=== PATIENT | female | born 1965 | race Caucasian/White ===

== ENCOUNTER 2017-12-22 20:08 | Emergency (ER) | payer OTHER ==
[~2017-12-22] VITALS: Ht 160 cm; Wt 58.4 kg
[~2017-12-22 20:08] MED LIST: ALBU1AER9 INH; LORA10TA6 PO; MULT-506 PO; RANI150T2 PO; RANI150T85 PO; SNG10 PO
[2017-12-22 20:11] VITALS: TEMP 36.5; Ht 160 cm; Wt 58.4 kg
[2017-12-22] MEDS ORDERED: PROCHLORPERAZINE 5 MG/ML 2 ML VIAL IV STA (20:20)
[2017-12-22] MEDS ORDERED: SODIUM CHLORIDE 0.9% 1000ML 1,000 ML IV STA (20:20)
[2017-12-22] MEDS ORDERED: KETOROLAC TROMETHAMINE 30 MG/ML VIAL IV STA (20:20)
[2017-12-22 21:18] VITALS: BP 167/95; PULSE 79; O2SAT 100
--- NOTE | 2017-12-23 00:58 | EMERGENCY ROOM VISIT NOTE ---
History Report prepared by Rossy: Lauren Hayden Under the Supervision of: Dr. Trent Camara M.D. First contact with patient: 20:15 Chief Complaint: HEADACHE Stated Complaint: MIGRAINE AND NAUSEA History of Present Illness The patient is a 52 year old female who presents to the Emergency Room with complaints of a constant migraine headache that started yesterday. She stated that she feels the pain on the right side of her head and neck. The patient complains of nausea and light makes it worse. The patient noted that Excedrin usually helps with her migraines, but it did not improve her pain this time. She denies any fever, vomiting, and recent fall or trauma. She states that she has no other medical problems. Source of History: patient Onset: Yesterday Position: head Quality: other (migraine) Timing: constant Modifying Factors (Worsening): other (light) Associated Symptoms: + neck pain, + nausea, No fevers, No vomiting Note: The patient denies any recent fall or trauma. Review of Systems See HPI for pertinent positives & negatives. A total of 10 systems reviewed and were otherwise negative. Past Medical & Surgical Medical Problems: (1) bulging disc in neck Surgical Problems: (1) History of hysterectomy Family History Patient reports no known family medical history. Social History Smoking Status: Current Every Day Smoker Alcohol Use: none Drug Use: none Marital Status: Housing Status: lives with family Occupation Status: employed Current/Historical Medications Scheduled Loratadine (Claritin), 10 MG PO DAILY Montelukast Sod (Montelukast Sodium), 10 MG PO DAILY Multivitamin (Multivitamin), 1 TAB PO DAILY Ranitidine (Zantac), 300 MG PO HS Ranitidine HCl (Ranitidine HCl), 150 MG PO QAM Scheduled PRN Albuterol Sulfate (Proair Hfa), 2 PUFFS INH Q4H PRN for Rescue/Asthma Symptoms Allergies Coded Allergies: Diphenhydramine (Verified Adverse Reaction, Unknown, HEART RACES, 01/19/16) Physical Exam Vital Signs Date Time Temp Pulse Resp B/P (MAP) Pulse Ox O2 Delivery O2 Flow Rate FiO2 12/22/17 21:18 79 16 167/95 100 12/22/17 20:11 36.5 70 18 165/90 100 Room Air Physical Exam Constitutional: Vital signs reviewed. Eyes: Pupils are equal round reactive to light. Conjunctiva are noninjected. ENT: Pharynx is clear without erythema or exudate. Mucous membranes are moist. Neck supple without meningeal signs. Respiratory: Clear to auscultation bilaterally. Breath sounds are equal bilaterally. Cardiovascular: Regular rate and rhythm. No rubs or gallops. GI: Soft, nondistended and nontender. Bowel sounds are present. Musculoskeletal: No peripheral edema. No lower extremity tenderness. Integumentary: No cyanosis. Neurological: The patient is awake and alert. Cranial nerves II-XII are intact. Motor is 5 out of 5 all extremities. Sensation is intact to light touch all extremities. Normal speech. No pronator drift. Psychiatric: Normal affect. Medical Decision & Procedures Medications Administered Medications (Trade) Dose Ordered Sig/Savita Route Start Time Stop Time Status Last Admin Dose Admin Prochlorperazine Edisylate (Compazine Inj) 10 mg NOW STAT IV 12/22/17 20:20 12/22/17 20:22 DC 12/22/17 20:32 10 MG Sodium Chloride 1,000 ml @ 999 mls/hr Q1H1M STAT IV 12/22/17 20:20 12/22/17 21:20 DC 12/22/17 20:31 999 MLS/HR Ketorolac Tromethamine (Toradol Inj) 10 mg NOW STAT IV 12/22/17 20:20 12/22/17 20:22 DC 12/22/17 20:32 10 MG ED Course 2014: The patient was evaluated in room B6. A complete history and physical exam was performed. 2019: Ordered Toradol Inj 10 mg IV, NSS 1000 ml @ 999 mls/hr IV, Compazine Inj 10 mg IV. 2053: Upon reevaluation, the patient appeared to have improvement of her symptoms. I discussed tonight's findings with her. She verbalized agreement of the treatment plan. The patient was discharged home. Medical Decision This is a 52-year-old female who presents with a migraine headache. I did perform a limited focused review of portions of the patient's old chart on the electronic medical record. The patient has had no recent pertinent visits to this hospital. The patient is presenting with a migraine headache. She has a history of migraine headaches and her headache today is typical of her prior migraines. She is neurologically intact. She has no fever. I have no reason to suspect an acute intracranial hemorrhage or meningitis. IV access was established. I did treat the patient with IV Compazine, Toradol and normal saline. I did reassess the patient. She did state that she felt better and wanted to go home. She was advised to follow-up with her doctor and was discharged in good condition. Medication Reconcilliation Current Medication List: was personally reviewed by me Blood Pressure Screening Patient's blood pressure: Elevated blood pressure Blood pressure disposition: Referred to PCP Impression Primary Impression: Acute headache Scribe Attestation The scribe's documentation has been prepared under my direct and personally reviewed by me in its entirety. I confirm that the note above accurately reflects all work, treatment, procedures, and medical decision making performed by me. Departure Information Dispostion Home / Self-Care Referrals Jonas De La Fuente D.O. (PCP) Forms HOME CARE DOCUMENTATION FORM, IMPORTANT VISIT INFORMATION Patient Instructions My [facility] Additional Instructions You have been examined and treated today on an emergency basis only. This is not a substitute for, or an effort to provide, complete comprehensive medical care. It is impossible to recognize and treat all injuries or illnesses in a single emergency department visit. It is therefore important that you follow up closely with your physician. Call as soon as possible for an appointment. Return for worsening symptoms or if you develop fever, numbness or weakness on one side of your body, difficulties with your speech or walking, or any other concerning symptoms. Problem Qualifiers Primary Impression: Acute headache Headache type: unspecified Intractability: not intractable Qualified Codes : R51 - Headache
== END 2017-12-22 21:19 | disposition home or self-care (01) ==
LOC: C.EDB 20:09
DX: R51 Headache (principal); F17.200 Nicotine dependence, unspecified, uncomplicated; Z88.6 Allergy status to analgesic agent

== ENCOUNTER 2018-11-02 05:58 | Observation (INO) ==
--- NOTE | 2018-10-28 09:29 | Anesthesiology Consultation ---
Date of Service October 28, 2018 Assessment & Plan (1) Encounter for pre-operative examination: Abnormal pre-op EKG done 10/27/18. Anterior infarct now present. Spoke to patient via phone regarding her functional status. She states she is very active at home and would have no SOB or CP with a flight of stairs. Case discussed with Dr. Adams. Given unremarkable PMH, age and BMI, patient OK to proceed without further cardiac workup. Surgeon ordered pre-op CXR. Radiology recommending f/u chest CT. Per surgeon, can proceed with surgery without chest CT. Chart Review Chart Review: Acceptable Risk for Surgery and Patient NOT seen in Pre Admission Testing History Surgery Operation Date: 11/02/18 07:30 Proposed Procedures p C5-C6 Removal Cervical Plate; C6-C7, C7-T11 Anterior Cervical Discectomy Fusion with Iliac Crest Bone Graft - Emmanuel Lujan, Height/Weight Height: 5 ft 3 in Weight: 58.967 kg Allergies Allergy/AdvReac Type Severity Reaction Status Date / Time diphenhydramine AdvReac Intermediate HEART RACES Verified 10/13/18 10:56 Medications Home Medications Medication Instructions Recorded Confirmed Last Taken albuterol sulfate 1 inh INHALATION QID PRN 10/13/18 10/13/18 Unknown gabapentin 300 mg PO TID 10/13/18 10/13/18 Unknown loratadine [Claritin] 10 mg PO QPM 10/13/18 10/13/18 Unknown montelukast [Singulair] 10 mg PO PM 10/13/18 10/13/18 Unknown multivitamin 1 tab PO DAILY 10/13/18 10/13/18 Unknown ranitidine HCl [Zantac] 150 mg PO UD 10/13/18 10/13/18 Unknown Past Medical History Medical History Asthma HAS NOT USED INHALER FOR A LONG TIME Degenerative disc disease Environmental and seasonal allergies GERD (gastroesophageal reflux disease) Migraine Osteoarthritis Past Family History Family History Father Family history of diabetes mellitus Past Surgical History Surgical History Fusion of spine CERVICAL History of adenoidectomy History of arthroscopy LEFT KNEE History of colonoscopy History of endoscopic sinus surgery History of hysterectomy History of tonsillectomy History of tooth extraction Past Anesthesia History 2013 HUA = MAC 3, ETT 7.0, grade view I. STOP BANG Total 1 Social History Smoking Status: Current every day smoker tobacco type: cigarettes Smoking cigarettes per day: 3 CIG DAILY Do You Dip or Chew Tobacco: No Hx Alcohol Use: No Hx Substance Use: No substance use type: does not use Testing Laboratory Results 10/27/18 WBC: 13.91 H/H: 13.3/39.7 PLATELETS: 264 SODIUM: 141 POTASSIUM: 4.2 CHLORIDE: 109 CO2: 26 BUN: 12 CREATININE: 0.77 GLUCOSE: 90 PT: 9.8 INR: 1.0 Electrocardiogram Date: 10/27/18 Findings: + NSR @ (70) Minimal voltage criteria for LVH, maybe normal variant. Anteroseptal infarct, age undetermined. Compared with EKG of 06/03/13, anteroseptal infarct is now present. Chest X-Ray Date: 10/27/18 FINDINGS: Focal density within the right posterior lung base only seen on the lateral view. Otherwise, the lungs are clear. The heart is normal in size. No pleural effusions. No pneumothorax. Cervical spinal fusion hardware is noted. IMPRESSION: Focal density within the right posterior lung base which may be related to the hemidiaphragm. However, chest CT recommended for confirmation. This finding was called/faxed to the referring physician's office following dictation. Echocardiogram Date: 09/30/13 EF: 53% Left ventricular systolic function is normal. Left ventricular diastolic function is normal. Trace tricuspid regurgitation. No evidence of pulmonary hypertension.
--- NOTE | 2018-10-30 14:56 | History and Physical Report ---
DATE OF ADMISSION: 11/02/2018 CHIEF COMPLAINT: Neck and arm pain 2 months in duration, worsening over time, refractory to Neurontin and tramadol, miserable, trouble moving her head, riveting arm pain, associated weakness, severe nighttime pain. HISTORY OF PRESENT ILLNESS: She has cervical radiculopathy with discogenic complexes at C6-C7 and C7-T1 cervical spine. She is here for semi-urgent surgery. PAST MEDICAL HISTORY: Positive for mitral valve prolapse, stomach ulcers, asthma, childhood diseases. PAST SURGICAL HISTORY: Knee, back, neck, hysterectomy. ALLERGIES: BENADRYL. SOCIAL HISTORY: . No alcohol. Mild tobacco active. REVIEW OF SYSTEMS: Twelve-system reviewed, negative for fevers, sweats, chills, weight loss or gain. Denies chest pain, palpitations, occasional ectopy. Positive for asthma. No nausea, vomiting. No urgency, frequency. She has numbness, tingling and joint pain primarily. MEDICATIONS: Zantac, Singulair, Claritin, multivitamin. OBJECTIVE: GENERAL: She is alert, oriented. VITAL SIGNS: Blood pressure 130/80, pulse 80, respiration 16. CARDIAC: Normal S1, S2, no S3. LUNGS: Clear to auscultation. No rales, rhonchi, wheezing. NEUROLOGICAL: She has a Spurling maneuver. She has Lhermitte sign. She has weakness. She has weakness of manager configuration and triceps function. Biceps is functional. No deltoid weakness, slight muscle atrophy. IMPRESSION: Cervical radiculopathy. PLAN: Includes the ACDF, cervical spine C6-C7, removal of anterior plate at C5-C6 with iliac crest bone.
[2018-11-02] MEDS ORDERED: SODIUM CHLORIDE 0.9% 1000ML IV SCH (06:00)
[2018-11-02] MEDS ORDERED: LR 15ML/HR IV SCH (06:00)
[2018-11-02] MEDS ORDERED: CEFAZOLIN 2000MG 2,000 MG/15 ML SYR IV SCH (06:00)
[2018-11-02] MEDS ORDERED: MIDAZOLAM HCL 1 MG/ML 2ML VIAL ONE (06:42)
[2018-11-02] MEDS ORDERED: fentaNYL citrate 100 MCG/2 ML VIAL ONE (06:42)
[2018-11-02] MEDS ORDERED: LIDOCAINE HCL 2% 2 ML VIAL/AMP(20MG/ML) INFIL ONE (06:47)
[2018-11-02] MEDS ORDERED: ROCURONIUM BROMIDE 10 MG/ML 5 ML VIAL ONE (06:47)
[2018-11-02] MEDS ORDERED: PROPOFOL IV EMULSION 10 MG/ML 20 ML VIAL IV ONE (06:47)
[2018-11-02] MEDS ORDERED: DEXAMETHASONE SOD INJ 4 MG/ML VIAL ONE (06:47)
[2018-11-02] MEDS ORDERED: ONDANSETRON INJ 2 MG/ML 2 ML VIAL ONE (06:47)
[2018-11-02] MEDS ORDERED: ePHEDrine sulfate 50 MG/ML AMP IV PRN (07:03)
[2018-11-02] MEDS ORDERED: PROMETHAZINE HCL 12.5 MG in SODIUM CHLORIDE 0.9% 50 ML IV PRN (07:03)
[2018-11-02] MEDS ORDERED: ATROPINE SULFATE 0.1 MG/ML 10ML SYR IV PRN (07:03)
[2018-11-02] MEDS ORDERED: ONDANSETRON INJ 2 MG/ML 2 ML VIAL IV PRN ×2 (07:03→11:41)
[2018-11-02] MEDS ORDERED: PHENYLEPHRINE 100MCG/ML 5ML SYR IV PRN (07:03)
[2018-11-02] MEDS ORDERED: BACITRACIN INJ 50,000 UNIT VIAL ONE (07:05)
[2018-11-02] MEDS ORDERED: THROMBIN FOR SOLN 20000 UNIT KIT ONE (07:06)
[2018-11-02] MEDS ORDERED: GELATIN SPONGE SZ 100 ONE (07:06)
[2018-11-02] MEDS ORDERED: BUPIVACAINE/EPINEPHRINE 0.5% MPF 1:200,000 30 ML VIAL ONE ×2 (07:06→07:23)
--- NOTE | 2018-11-02 07:29 | History & Physical Bridge Note ---
Date of Service November 02, 2018 History & Physical Bridge Note I have examined the patient, reviewed the History & Physical and in the interval since the performance of the History & Physical I have noted the following changes of clinical significance: Fusion C6-T1, removal of plate c5-6, iliac crest bone graft
[2018-11-02] MEDS ORDERED: HYDROmorphone INJ 2 MG/ML SYR/VIAL ONE (07:55)
[2018-11-02] MEDS ORDERED: GLYCOPYRROLATE 0.2 MG/ML VIAL ONE (09:08)
[2018-11-02] MEDS ORDERED: NEOSTIGMINE METHYLSULFATE 5 MG/5 ML SYR ONE (09:08)
[2018-11-02] MEDS ORDERED: ePHEDrine sulfate 50 MG/ML AMP ONE (09:17)
--- NOTE | 2018-11-02 09:48 | Post Operative Brief Note ---
Immediate Post Op Note v1 Date of Surgery November 02, 2018 Pre & Post Diagnosis Operation Date: 11/02/18 07:30 Pre-Op Diagnosis: Cervical Stenosis, Disc Herniation Post-Op Diagnosis: Cervical Stenosis, Disc Herniation Procedure Operation Date: 11/02/18 07:30 Actual Procedures p C6-C7, C7-T1 Anterior Cervical Discectomy and Fusion with Iliac Crest Bone Graft, Insertion of Coalition device at C6-C7, C7-T1(Not Applicable) - Emmanuel Lujan DO Surgeon Emmanuel Lujan DO Production Sanitizer kiki Estimated Blood Loss 15 Findings Consistent with Post-Op Diagnosis Drains Juan Drain Complications none Disposition Accompanied Patient To Recovery: Yes Overlapping Procedure I was immediately available: during the entire case.
--- NOTE | 2018-11-02 10:00 | Fluoroscopy Report ---
FL spine 1V any level CLINICAL HISTORY: 53 years-old Female presenting with C5-C6 REMOVAL OF PLATE C6-C7 C7-T11 ACDF. TECHNIQUE: 1 fluoroscopic image(s) recorded as part of an intraoperative procedure. COMPARISON: 10/09/2018. FINDINGS/IMPRESSION: Anterior cervical discectomy and fusion of C5-6 again noted. There has been interval anterior cervica l discectomy and fusion of C6-7. Alignment is unchanged from prior. Please see surgical report for further details. Fluoroscopy dosage (mGy): 6.86. Fluoroscopy time: 7.8 seconds. Number or time of high level fluoroscopy (HLF), digital spot, or digital subtraction images: 5.6 seco nds. Electronically signed by: Amado Trimble M.D. 11/02/2018 9:59 AM
[2018-11-02] MEDS: fentaNYL citrate 100 MCG/2 ML VIAL IV PRN ×4 (10:19→10:34)
[2018-11-02] MEDS: HYDROmorphone INJ 1 MG/ML SYRINGE IV PRN ×2 (10:39→10:47)
[2018-11-02] MEDS ORDERED: LORazepam 0.5 MG/1 ML VIAL IV PRN (11:41)
[2018-11-02] MEDS ORDERED: HYDROmorphone INJ 0.5 MG/0.5 ML SYR IV PRN (11:41)
[2018-11-02] MEDS ORDERED: MAGNESIUM HYDROXIDE SUSP 30 ML UDC PO PRN (11:41)
[2018-11-02] MEDS ORDERED: RACEPINEPHRINE 2.25% NEBU SOLN 0.5 ML VIAL INH PRN (11:41)
[2018-11-02] MEDS ORDERED: NALOXONE HCL 0.4 MG/1 ML VIAL/CARP IV PRN (11:41)
[2018-11-02] MEDS ORDERED: DEXAMETHASONE SOD PHOSPHATE 8 MG in SYRINGE 0 ML IV PRN (11:46)
[2018-11-02] MEDS ORDERED: ACETAMINOPHEN 1,000 MG/100 ML VIAL IV PRN (12:00)
[2018-11-02] MEDS ORDERED: ALBUTEROL HFA 8 GM INHALER INH PRN (12:00)
--- NOTE | 2018-11-02 12:03 | Anesthesiology Progress Note ---
Date of Service November 02, 2018 Anesthesia Post Procedure Vital Signs Vital Signs: Temp Pulse Pulse Pulse Pulse Resp BP 11/02/18 11:56 80 14 11/02/18 11:53 90 14 11/02/18 11:25 36.7 C 85 15 11/02/18 11:17 37.0 C 11/02/18 11:15 104 H 20 11/02/18 11:10 96 H 14 159/78 H 11/02/18 11:05 96 H 13 136/80 11/02/18 11:02 84 14 11/02/18 11:01 98 H 14 161/89 H 11/02/18 11:00 90 16 11/02/18 10:55 96 H 19 158/87 H 11/02/18 10:50 84 11 L 153/75 H 11/02/18 10:45 103 H 23 158/65 H 11/02/18 10:40 102 H 20 158/70 H 11/02/18 10:35 85 14 147/83 H 11/02/18 10:31 97 H 18 163/77 H 11/02/18 10:30 104 H 18 11/02/18 10:25 101 H 13 158/78 H 11/02/18 10:21 99 H 14 147/81 H 11/02/18 10:20 98 H 15 11/02/18 10:15 93 H 14 126/88 11/02/18 10:10 102 H 16 162/81 H 11/02/18 10:05 96 H 15 152/85 H 11/02/18 10:00 99 H 17 150/85 H 11/02/18 09:55 97 H 18 125/68 11/02/18 09:50 80 14 120/63 11/02/18 09:47 82 14 11/02/18 09:45 83 15 110/56 L 11/02/18 09:44 36.1 C L 78 83 13 100/54 L 11/02/18 06:20 37.0 C 67 20 BP Pulse Ox 11/02/18 11:56 144/76 H 97 11/02/18 11:53 96 11/02/18 11:25 146/80 H 96 11/02/18 11:17 97 11/02/18 11:15 96 11/02/18 11:10 98 11/02/18 11:05 97 11/02/18 11:02 96 11/02/18 11:01 97 11/02/18 11:00 97 11/02/18 10:55 96 11/02/18 10:50 94 11/02/18 10:45 94 11/02/18 10:40 98 11/02/18 10:35 96 11/02/18 10:31 93 11/02/18 10:30 94 11/02/18 10:25 99 11/02/18 10:21 99 11/02/18 10:20 100 11/02/18 10:15 99 11/02/18 10:10 98 11/02/18 10:05 99 11/02/18 10:00 99 11/02/18 09:55 95 11/02/18 09:50 95 11/02/18 09:47 92 11/02/18 09:45 92 11/02/18 09:44 110/56 L 90 11/02/18 06:20 148/88 H 99 Pain Intensity Left Neck: Pain Intensity: 9 Anterior Neck: Pain Intensity: 4 Left Lower Arm: Pain Intensity: 8 Neck: Pain Intensity: 4 Transfer of Care Handoff Completed per policy Notes Mental Status: alert / awake / arousable Patient Amnestic to Procedure: Yes Nausea / Vomiting: adequately controlled Pain: adequately controlled Airway Patency, RR, SpO2: stable & adequate BP & HR: stable & adequate Hydration State: stable & adequate Anesthetic Complications: no major complications apparent
[2018-11-02] MEDS: SODIUM CHLORIDE 0.9% 1000ML 1,000 ML IV SCH (12:07)
--- NOTE | 2018-11-02 13:18 | Operative Report ---
DATE OF OPERATION: 11/02/2018 PREOPERATIVE DIAGNOSIS: Cord compression C6-C7 and C7-T1, cervical thoracic spine. POSTOPERATIVE DIAGNOSIS: Cord compression C6-C7 and C7-T1, cervical thoracic spine. PROCEDURES: 1. Anterior cervical discectomy and fusion, C6-C7, C7-T1, iliac crest structural autograft. 2. Coalition insertion at C6-C7 and C7-T1. SURGEON: Emmanuel Lujan DO PATTERNMAKER PRESSURE CAST: Jonas Sy PA-C COMPLICATIONS: No complications. ESTIMATED BLOOD LOSS: 15 mL. DESCRIPTION OF PROCEDURE: The patient was taken to the operating room, a general intubated anesthetic provided to the patient. We kept her supine, placed her on some longitudinal traction, scrubbed, prepped and draped sterile. I made a skin incision, fascial incision. I came down on the anterior aspect of the spinal cord, used a classic approach. I was able to find the anterior plate at C5-C6 fairly easily. We did make several attempts to try to take out the plate. I made the decision, it was not required, the fusion was solid, was not in the way and we had an alternative plan B with the coalition device. We did formal discectomies at C6-C7 and C7-T1, taking out disc material osteophyte. We were back into the spinal cord in each level. Disc material was removed. I was pleased with the decompression. Next, I went to the left iliac crest, made a skin incision, fascial incision, was able to harvest a structural autograft for the vacated discectomy sites in the cervical spine. This autograft structural was placed into the coalition device by the [employer]. They were 6 mm in height, 15 mm in depth and approximately 15 mm in width. These were placed in the interval, secured in place, bone grafted. We irrigated and closed both areas in step by step fashion, Juan over the cervical spine. Sterile dressings applied. The patient returned to PACU stable. No apparent complications. I attest to the content of the Intraoperative Record and any orders documented therein. Any exception s are noted below.
[2018-11-02] MEDS: GABAPENTIN 300 MG CAP PO SCH ×2 (13:56→20:40)
[2018-11-02] MEDS: CEFAZOLIN 2000MG 2,000 MG/15 ML SYR IV SCH (16:12)
[2018-11-02] MEDS: OXYCODONE HCL IR 5 MG TAB (IMMEDIATE RELEASE) PO PRN ×2 (16:26→20:43)
[2018-11-02] MEDS: DOCUSATE SODIUM 100 MG CAP PO SCH (20:40)
[2018-11-02] MEDS ORDERED: MONTELUKAST SODIUM 10 MG TABLET PO SCH (21:00)
[2018-11-03] MEDS: CEFAZOLIN 2000MG 2,000 MG/15 ML SYR IV SCH ×2 (00:04→07:46)
[2018-11-03] MEDS: SODIUM CHLORIDE 0.9% 1000ML 1,000 ML IV SCH (00:05)
[2018-11-03] MEDS: OXYCODONE HCL IR 5 MG TAB (IMMEDIATE RELEASE) PO PRN ×2 (05:14→10:33)
--- NOTE | 2018-11-03 07:45 | Anesthesiology Progress Note ---
Date of Service November 03, 2018 Anesthesia Post Procedure Vital Signs Vital Signs: Temp Pulse Pulse Pulse Resp BP BP 11/03/18 07:04 61 14 11/03/18 06:57 36.8 C 68 16 145/80 H 11/03/18 05:11 36.7 C 77 16 150/73 H 11/03/18 03:19 72 16 11/03/18 03:10 36.7 C 72 16 142/83 H 11/03/18 01:00 36.8 C 77 14 144/83 H 11/02/18 23:10 66 14 11/02/18 22:25 36.6 C 76 17 143/80 H 11/02/18 20:35 36.6 C 85 16 137/80 11/02/18 19:07 88 14 11/02/18 18:30 93 H 15 145/86 H 11/02/18 16:13 36.6 C 88 14 150/80 H 11/02/18 15:27 71 16 11/02/18 14:30 98 H 16 163/93 H 11/02/18 13:54 76 16 119/73 11/02/18 13:24 36.8 C 16 147/80 H 11/02/18 12:22 83 15 142/82 H 11/02/18 11:56 80 14 144/76 H 11/02/18 11:53 90 14 11/02/18 11:25 36.7 C 85 15 146/80 H 11/02/18 11:17 37.0 C 11/02/18 11:15 104 H 20 11/02/18 11:10 96 H 14 159/78 H 11/02/18 11:05 96 H 13 136/80 11/02/18 11:02 84 14 11/02/18 11:01 98 H 14 161/89 H 11/02/18 11:00 90 16 11/02/18 10:55 96 H 19 158/87 H 11/02/18 10:50 84 11 L 153/75 H 11/02/18 10:45 103 H 23 158/65 H 11/02/18 10:40 102 H 20 158/70 H 11/02/18 10:35 85 14 147/83 H 11/02/18 10:31 97 H 18 163/77 H 11/02/18 10:30 104 H 18 11/02/18 10:25 101 H 13 158/78 H 11/02/18 10:21 99 H 14 147/81 H 11/02/18 10:20 98 H 15 11/02/18 10:15 93 H 14 126/88 11/02/18 10:10 102 H 16 162/81 H 11/02/18 10:05 96 H 15 152/85 H 11/02/18 10:00 99 H 17 150/85 H 11/02/18 09:55 97 H 18 125/68 11/02/18 09:50 80 14 120/63 11/02/18 09:47 82 14 11/02/18 09:45 83 15 110/56 L 11/02/18 09:44 36.1 C L 78 83 13 100/54 L 110/56 L Pulse Ox 11/03/18 07:04 98 11/03/18 06:57 98 11/03/18 05:11 97 11/03/18 03:19 97 11/03/18 03:10 98 11/03/18 01:00 97 11/02/18 23:10 97 11/02/18 22:25 96 11/02/18 20:35 98 11/02/18 19:07 97 11/02/18 18:30 97 11/02/18 16:13 93 11/02/18 15:27 96 11/02/18 14:30 97 11/02/18 13:54 100 11/02/18 13:24 95 11/02/18 12:22 95 11/02/18 11:56 97 11/02/18 11:53 96 11/02/18 11:25 96 11/02/18 11:17 97 11/02/18 11:15 96 11/02/18 11:10 98 11/02/18 11:05 97 11/02/18 11:02 96 11/02/18 11:01 97 11/02/18 11:00 97 11/02/18 10:55 96 11/02/18 10:50 94 11/02/18 10:45 94 11/02/18 10:40 98 11/02/18 10:35 96 11/02/18 10:31 93 11/02/18 10:30 94 11/02/18 10:25 99 11/02/18 10:21 99 11/02/18 10:20 100 11/02/18 10:15 99 11/02/18 10:10 98 11/02/18 10:05 99 11/02/18 10:00 99 11/02/18 09:55 95 11/02/18 09:50 95 11/02/18 09:47 92 11/02/18 09:45 92 11/02/18 09:44 90 Pain Intensity Left Neck: Pain Intensity: 9 Anterior Neck: Pain Intensity: 4 Left Lower Arm: Pain Intensity: 8 Neck: Pain Intensity: 4 Notes Mental Status: alert / awake / arousable and participated in evaluation Patient Amnestic to Procedure: Yes Nausea / Vomiting: adequately controlled Pain: adequately controlled Airway Patency, RR, SpO2: stable & adequate BP & HR: stable & adequate Hydration State: stable & adequate Anesthetic Complications: no major complications apparent and Pt Satisfied with anesthetic care
[2018-11-03] MEDS: GABAPENTIN 300 MG CAP PO SCH (07:47)
[2018-11-03] MEDS: DOCUSATE SODIUM 100 MG CAP PO SCH (07:47)
--- NOTE | 2018-11-03 19:27 | Discharge Summary ---
Erendira was seen on rounds this morning. She had an uneventful evening, 20-hour stay in the hospital for anterior cervical disc arthrodesis. She has done well. Wound clean, dry. Neurologically intact and afebrile. No swallowing or shortness of breath difficulties. ASSESSMENT: Status post anterior cervical discectomy and fusion, 2 levels with iliac crest bone graft, nice short term recovery. PLAN: We will discharge her home. She has instructions, precautions given to her in the office and in the hospital. Medication for pain. Cervical collar and a followup appointment.
[2018-11-04] MEDS ORDERED: BISACODYL 5 MG TABEC PO PRN (09:50)
== END 2018-11-03 11:15 | disposition home or self-care (01) ==
LOC: ASU 05:58 → 3E 05:58

== ENCOUNTER 2024-05-06 16:04 | Inpatient (IN) ==
--- NOTE | 2024-05-06 16:10 | Emergency Department Note ---
Impression & Plan Nonischemic cardiomyopathy, Chest pain ED Provider Note NAME: BIRD FULTON AGE: 59 SEX: F : 1965 ARRIVES VIA: Walk-In INFORMANT: Patient, ED PROVIDER(S): Oscar Hadley MD CHIEF COMPLAINT: Chest pain, outpatient referral MEDICAL DECISION MAKING: Patient presents due to concern for chest pain. IV was established and blood work is obtained. Patient may have slight depressions in the lateral leads although not significantly prominent. Patient was ordered aspirin and nitro as the patient was complaining of left-sided chest pressure with radiation to the neck and arm. Patient also does have a history of cardiomyopathy. Patient was ordered the aspirin and nitro patient's blood work shows a normal white count H&H and platelet count. Chest x-ray without obvious pneumonia or pneumothorax. There is comment about soft tissue density at the left base. The patient had resolution of her pain after 3 nitro. Patient was mildly hypertensive when she presented normotensive. Given the patient's known history of cardiomyopathy with improvement in her chest pain I did speak the on-call hospitalist service. Initial EKG and troponin are fairly unremarkable the patient may have faint depressions in the lateral leads. I did speak with Shahana Vila PA-C and the patient was admitted by Dr. Durant. Discussion w/ other healthcare providers: Shahana Vila PA-C and Dr. Durant inpatient medicine service Prior /Outside records reviewed: I reviewed part of an echo report from September 2021 LVEF mildly reduced 45 to 49% with mild left ventricular cavity size enlargement. Concentric mild LV thickness. I did review part of a cardiac catheterization report from May 2021 patient was noted to have 30% stenosis of OM1 no other significant stenosis. Differential diagnosis: Cardiac ischemia, aortic dissection, pulmonary embolism, pneumothorax, pneumonia, pericarditis, myocarditis, GERD, cholecystitis, pancreatitis, musculoskeletal, as well as other pathologies were considered. Diagnostics, as interpreted by me: ECG: Normal sinus rhythm, rate of 69, normal intervals, normal axis no obvious STEMI, Q waves noted in V2 with T wave version. Possible slight depressions in the lateral leads no significant changes with the exception of possible new T wave version in V2. Cardiac monitoring: An order was placed for continuous cardiac monitoring. The monitor shows a rate of 75 with sinus rhythm. Patient was placed on pulse oximetry Medical decision rules: Heart score Imaging studies: I informally interpreted the patient's chest x-ray without obvious pneumonia with formal report to follow. HPI: Patient presents due to concern for chest pain. Reportedly the patient has had chest pain since yesterday morning. Initially thought this might be indigestion and did take some Pepto-Bismol and Tums and drink Sprite but the patient has had persistent pain. Patient states it has been fairly constant occasionally is relieved but has been present for hours in duration. No falls or trauma patient denies any cough or fever. Patient states that his left-sided and might have some radiation to the left neck and jaw area as well as left armpit. Patient states that she has not exerted herself greatly patient has not had any worsening symptoms with just walking. Patient states that she has had occasional bouts of shortness of breath but they come and go. No fevers or chills. Patient denies any alcohol or tobacco use. Patient reports that she does have a history of cardiomyopathy does follow with Dr. Kumar. Patient states that she did have a stress echocardiogram and cardiac catheterization completed about 2 or 3 years ago. Patient denies any history of DVT or PE. No leg swelling or calf pain. Patient denies any recent surgeries procedures or hospitalizations and no recent prolonged car plane travel. PAST MEDICAL HISTORY: See Below PAST SURGICAL HISTORY: See Below SOCIAL HISTORY: See Below HOME MEDICATIONS: See Below ALLERGIES: See Below VITALS: See Below PHYSICAL EXAMINATION: GENERAL: NAD, non-toxic. EYE EXAM: Normal conjunctiva. PERRL, no anisocoria and EOM's grossly intact w/o pain. OROPHARYNX: Moist mucus membranes, grossly normal dentition. NECK: Trachea midline, no stridor. Supple, no nuchal rigidity, no adenopathy, non-tender. No signs of meningismus. FROM of the neck with good chin to chest and neck extension. Chest: No reproducible left-sided chest pain. LUNGS: Clear to auscultation. Normal chest wall mechanics. HEART: NSR, no MRG. ABDOMEN: Abdomen soft, non-tender, no masses, no rebound or guarding. BACK: No CVA TTP. SKIN: No rashes and no bruising. UPPER EXTREMITIES: Upper extremities are grossly normal. LOWER EXTREMITIES: Grossly normal, no edema. Negative Homans' sign bilaterally NEURO EXAM: A&O x3, cranial nerves II-XII grossly intact, normal speech, moves all 4 extremities. Past Med/Surg History Problem List (Updated 05/08/24 @ 07:30 by Oscar Hadley MD) Chronic systolic CHF (congestive heart failure) Atypical chest pain Non-occlusive coronary artery disease Nonischemic cardiomyopathy (Acute) Chest pain (Acute) Endometrial polyp (Acute) Acute pelvic pain (Acute 07/19/13) Fibroids (Acute) Fibroids (Acute) Menorrhagia (Acute 10/01/13) Dysmenorrhea (Acute 10/01/13) Leiomyoma (Acute 10/01/13) Simple endometrial hyperplasia without atypia (Acute 10/01/13) Abdominal pain (Acute) Gastroenteritis (Acute) History of hysterectomy Acute headache (Acute) Encounter for pre-operative examination Arthritis Back problem Hemorrhoids (Acute) Heart disease per pt reason for jardiance--follows with Dr. Kumar High cholesterol Medical History Heart failure EF 45-49% on 09/2021 echo, mild dilated nonischemic cardiomyopathy CAD (coronary artery disease) 30% stenosis of OM1 History of anemia Degenerative disc disease GERD (gastroesophageal reflux disease) Migraine Asthma inhaler prn Surgical History H/O hemorrhoidectomy (09/26/22) Anorectal Exam under Anesthesia, Hemorrhoidectomy(Not Applicable) - Ricardo Biggs DO History of cardiac cath 06/21/21 @ [facility] no stents placed History of hysterectomy History of arthroscopy LEFT KNEE Fusion of spine x2--last Cervical Disectomy/fusion 11/02/18 C6-C7, C7-T1 @ [facility]--per pt some limitation moving neck backwards. Grade 1 view, glidescope 3, ETT 7. History of colonoscopy History of tooth extraction History of tonsillectomy History of adenoidectomy History of endoscopic sinus surgery Family History Father Diabetes Family history of diabetes mellitus Aunt Cancer Mother Hypertension Other No family history of adverse response to anesthesia Social History Smoking Status: Never smoker Second Hand Exposure: No; Do You Dip or Chew Tobacco: No; Hx Alcohol Use: No Hx Substance Use: No Preferred Language: Estonian Communication Ability: Effective Visual Impairment: No Limitations Administrative Nursing Supervisor Required: No Beliefs That Will Affect Care: None marital status: Current Living Situation: Spouse current occupational status: disabled How many Children do You have: 2 Other Information That Helps Us Care for You: No Feels Safe at Home: Yes Safety Concerns: Feels Safe At This Time during the past year weight has: remained stable Assistive Devices: None Allergies Allergies Allergy/AdvReac Type Severity Reaction Status Date / Time diphenhydramine Allergy Intermediate HEART RACES Verified 11/05/22 08:39 Home Meds Home Medications Medication Instructions Recorded Confirmed gabapentin 300 mg capsule See Rx Instructions .Route .COMPLEX 10/13/18 05/06/24 loratadine 10 mg tablet (Claritin) 10 mg PO QPM 10/13/18 05/06/24 montelukast 10 mg tablet 10 mg PO PM 10/13/18 05/06/24 (Singulair) metoprolol succinate 50 mg See Rx Instructions .Route .COMPLEX 06/21/21 05/06/24 tablet,extended release 24 hr sennosides 8.6 mg tablet (Senokot) 17.2 mg PO BID PRN Constipation 06/21/21 05/06/24 sumatriptan succinate 50 mg tablet 50 mg PO DAILY PRN Migraine 06/21/21 05/06/24 Headache empagliflozin 10 mg tablet 10 mg PO QAM 09/13/22 05/06/24 (Jardiance) ezetimibe 10 mg tablet 10 mg PO QAM 09/13/22 05/06/24 multivitamin with minerals 1 tab PO QAM 09/13/22 05/06/24 rosuvastatin 40 mg tablet 40 mg PO QAM 09/13/22 05/06/24 sacubitril 97 mg-valsartan 103 mg 1 tab PO BID 09/13/22 05/06/24 tablet (Entresto) spironolactone 25 mg tablet 12.5 mg PO QAM 09/13/22 05/06/24 aspirin 81 mg capsule 81 mg PO QAM 09/24/22 05/06/24 duloxetine 20 mg capsule,delayed 20 mg PO DAILY 05/06/24 05/06/24 release Previous Rx's Medication Instructions Recorded omeprazole 40 mg capsule,delayed 40 mg PO DAILY #30 caps 05/07/24 release Results & Data (ED) Vital Signs Vital Signs - 24 hr 05/06/24 16:06 05/06/24 16:19 Temperature 36.3 C L Temperature Source Skin Pulse Rate 81 85 Respiratory Rate 81 H Respiratory Effort / Characteristics Non-Labored Spontaneous Respiratory Depth Normal Respiratory Pattern Regular Blood Pressure 147/84 H Blood Pressure Mean 105 Pulse Oximetry 99 Oxygen Delivery Method Room Air Sepsis Recent Fever Within 48 Hours No Sepsis New/Unexplained Change in Mental Status N/A Sepsis Action Taken by Nursing No Action Required Home Medications Current Medication List: was personally reviewed by me Laboratory Data Attestation: I reviewed the patient's lab results. 05/07/24 06:16 05/07/24 06:16 Lab Results 05/06/24 Range/Units 16:22 WBC 8.04 (4.8-10.8) K/ul RBC 3.99 L (4.20-5.40) M/uL Hgb 12.6 (12.0-16.0) g/dl Hct 38.0 (37.0-47.0) % MCV 95.2 (80.0-100.0) fL MCH 31.6 (25.0-34.0) pg MCHC 33.2 (32.0-36.0) g/dL RDW Std Deviation 46.3 (36.4-46.3) fL RDW Coeff of Drea 13.0 (11.5-14.5) % Plt Count 253 (130-400) K/uL MPV 10.8 (9.4-12.4) fL Immature Gran % (Auto) 0.2 % Neut % (Auto) 58.9 % Lymph % (Auto) 29.9 % [place] % (Auto) 8.7 % Eos % (Auto) 1.2 % Baso % (Auto) 1.1 % Neut # (Auto) 4.73 (1.40-6.50) K/uL Lymph # (Auto) 2.40 (1.20-3.40) K/uL [place] # (Auto) 0.70 H (0.11-0.59) K/uL Eos # (Auto) 0.10 (0.00-0.50) K/uL Baso # (Auto) 0.09 (0.00-0.20) K/uL Immature Gran # (Auto) 0.02 (0.01-0.20) K/uL PT 10.4 (9.0-12.0) Seconds INR 1.0 (0.9-1.1) APTT 25 (21-31) Seconds PTT Ratio 0.9 Sodium 142 (136-145) mmol/L Potassium 3.7 (3.5-5.1) mmol/L Chloride 108 H (98-107) mmol/L Carbon Dioxide 26 (21-32) mmol/L Anion Gap 8 (3-11) BUN 15 (6-23) mg/dl Creatinine 1.04 (0.6-1.2) mg/dl Est Cr Clr Drug Dosing 53.4 ml/min eGFR 62.69 BUN/Creatinine Ratio 14.4 (10-20) Glucose 112 H (70-99(Fasting)) mg/dl Calcium 9.4 (8.6-10.3) mg/dl Total Bilirubin 0.5 (0.2-1.0) mg/dl AST 21 (13-39) U/L ALT 15 (7-52) U/L Alkaline Phosphatase 53 (34-104) U/L Troponin I High Sens 3.3 (0-14) pg/ml Total Protein 7.0 (6.0-8.3) gm/dl Albumin 4.4 (3.4-5.0) gm/dl Globulin 2.6 (2.5-4.0) gm/dl Albumin/Globulin Ratio 1.7 (0.9-2) Lipase 36 (11-82) U/L Administered Medications Discontinued Medications Aspirin (Aspirin Chew 324 Mg) 324 mg PO NOW STA Stop: 05/06/24 16:17 Last Admin: 05/06/24 16:53 Dose: 324 mg Documented By: TRICIA Aspirin (Aspirin 81 Mg Ectab) 81 mg PO [facility] Stop: 06/06/24 08:59 Last Admin: 05/07/24 08:07 Dose: 81 mg Documented By: BC Duloxetine HCl (Duloxetine Hcl 20 Mg Cap) 20 mg PO DAILY [facility] Stop: 06/06/24 08:59 Last Admin: 05/07/24 08:07 Dose: 20 mg Documented By: HUSSEIN Ezetimibe (Ezetimibe 10 Mg Tab) 10 mg PO [facility] Stop: 06/06/24 08:59 Last Admin: 05/07/24 08:07 Dose: 10 mg Documented By: HUSSEIN Empagliflozin (Empagliflozin 10 Mg Tab) 10 mg PO QAM [facility] Stop: 06/06/24 08:59 Last Admin: 05/07/24 08:07 Dose: 10 mg Documented By: HUSSEIN Gabapentin (Gabapentin 300 Mg Cap) 300 mg PO DAILY@0800,1300 KYLIE Stop: 06/06/24 07:59 Last Admin: 05/07/24 14:28 Dose: 300 mg Documented By: Admin: 05/07/24 08:06 Dose: 300 mg Documented By: HUSSEIN Gabapentin (Gabapentin 300 Mg Cap) 900 mg PO HS [facility] Stop: 06/05/24 21:44 Last Admin: 05/06/24 21:56 Dose: 900 mg Documented By: ELSY Sodium Chloride (Nss) 1,000 mls @ 100 mls/hr IV .Q10H KYLIE Stop: 05/07/24 06:59 Last Infusion: 05/07/24 08:15 Dose: Infused Documented By: Admin: 05/06/24 21:55 Dose: 100 mls/hr Documented By: ELSY Ioversol (Optiray 320 125ml) 118 ml IV ONCE ONE Stop: 05/06/24 19:14 Last Admin: 05/06/24 19:14 Dose: 118 ml Documented By: SETH Loratadine (Loratadine 10 Mg Tab) 10 mg PO QPM KYLIE Stop: 06/05/24 20:59 Last Admin: 05/06/24 21:56 Dose: 10 mg Documented By: ELSY Metoprolol Succinate (Metoprolol Succ 50mg Ext Rel Tab) 50 mg PO DAILY [facility] Stop: 06/06/24 08:59 Last Admin: 05/07/24 08:07 Dose: 50 mg Documented By: HUSSEIN Metoprolol Succinate (Metoprolol Succ 50mg Ext Rel Tab) 75 mg PO HS [facility] Stop: 06/05/24 21:44 Last Admin: 05/06/24 21:55 Dose: 75 mg Documented By: ELSY Montelukast Sodium (Montelukast Sodium 10 Mg Tablet) 10 mg PO PM [facility] Stop: 06/05/24 20:59 Last Admin: 05/06/24 21:56 Dose: 10 mg Documented By: TRM Nitroglycerin (Nitroglycerin Sl 0.4 Mg/Tab Tab) 0.4 mg SL Q5M PRN PRN Reason: Chest Pain Stop: 06/05/24 16:15 Last Admin: 05/06/24 17:04 Dose: 0.4 mg Documented By: Admin: 05/06/24 16:59 Dose: 0.4 mg Documented By: Admin: 05/06/24 16:54 Dose: 0.4 mg Documented By: TRICIA Pantoprazole Sodium (Pantoprazole 40 Mg Tab) 40 mg PO DAILY [facility] Stop: 06/06/24 08:59 Last Admin: 05/07/24 08:08 Dose: 40 mg Documented By: HUSSEIN Rosuvastatin Calcium (Rosuvastatin Calcium 20 Mg Tab) 40 mg PO QAM [facility] Stop: 06/06/24 08:59 Last Admin: 05/07/24 08:08 Dose: 40 mg Documented By: HUSSEIN Sacubitril/Valsartan (Valsartan/Sacubitril 103/97mg Tab) 1 tab PO BID [facility] Stop: 06/05/24 20:59 Last Admin: 05/07/24 08:08 Dose: 1 tab Documented By: Admin: 05/06/24 21:56 Dose: 1 tab Documented By: [facility] Imaging Data Radiologist's Impression: Chest X-Ray 05/06/24 16:17 EXAM: Radiograph of the Chest 1 View INDICATION: Chest pain. TECHNIQUE: Frontal view of the chest. COMPARISON: 10/27/2018 and 07/01/2014. FINDINGS: Lungs and pleural spaces: There is a new soft tissue density projecting in the left base likely at least partially reflecting the diaphragm. Heart: Shape and configuration within normal limits allowing for technique. Mediastinum: Normal contour. Bones/joints: Visualized portions of the cervicothoracic hardware intact. No acute osseous abnormality. Soft tissues: No abnormality noted. No radiopaque foreign body noted. Upper abdomen: No abnormality noted. IMPRESSION: 1. No acute cardiopulmonary disease. 2. New prominent soft tissue density in the left lung base which is at least partially accounted for by the diaphragm. Could reflect new extension of fat through a diaphragmatic hernia. This could be further assessed if clinically warranted with CT chest. ACT 112: Negative or not required by law. Electronically signed by Kristina Lindsay 05-06-2024 4:38 PM Discharge Plan Visit Data Chief Complaint: Cardiac Assessment Stated Complaint: CHESTPAIN, SOB, BACK PAIN, LEFT ARM PAIN, ED Provider: Oscar Hadley Discharge Problem: Nonischemic cardiomyopathy, Chest pain Patient Disposition: Admitted As Inpatient Condition: Good Discharge Instructions Interventions: ED Discharge Assessment Last Done: 05/06/24 21:03 Discharge Problem: Chest pain Qualifiers: Chest pain type: unspecified Qualified Code(s): R07.9 - Chest pain, unspecified
--- NOTE | 2024-05-06 16:39 | XRay Report ---
EXAM: Radiograph of the Chest 1 View INDICATION: Chest pain. TECHNIQUE: Frontal view of the chest. COMPARISON: 10/27/2018 and 07/01/2014. FINDINGS: Lungs and pleural spaces: There is a new soft tissue density projecting in the left base likely at least partially reflecting the diaphragm. Heart: Shape and configuration within normal limits allowing for technique. Mediastinum: Normal contour. Bones/joints: Visualized portions of the cervicothoracic hardware intact. No acute osseous abnormality. Soft tissues: No abnormality noted. No radiopaque foreign body noted. Upper abdomen: No abnormality noted. IMPRESSION: 1. No acute cardiopulmonary disease. 2. New prominent soft tissue density in the left lung base which is at least partially accounted for by the diaphragm. Could reflect new extension of fat through a diaphragmatic hernia. This could be further assessed if clinically warranted with CT chest. ACT 112: Negative or not required by law. Electronically signed by Kristina Lindsay 05-06-2024 4:38 PM
[2024-05-06 16:45] LABS: Basophils # (auto) 0.09 K/uL (0.00-0.20); Basophils % (auto) 1.1 %; Eosinophils % (auto) 1.2 %; Hemoglobin 12.6 g/dl (12.0-16.0); Immature Granulocytes # (auto) 0.02 K/uL (0.01-0.20); Immature Granulocytes % (auto) 0.2 %; Lymphocytes % (auto) 29.9 %; Mean Corpuscular Hemoglobin 31.6 pg (25.0-34.0); Mean Corpuscular Hgb Conc 33.2 g/dL (32.0-36.0); Mean Corpuscular Volume 95.2 fL (80.0-100.0); Mean Platelet Volume 10.8 fL (9.4-12.4); Monocytes % (auto) 8.7 %; Neutrophils # (auto) 4.73 K/uL (1.40-6.50); Neutrophils % (auto) 58.9 %; Platelet Count 253 K/uL (130-400); RDW Standard Deviation 46.3 fL (36.4-46.3); Red Blood Count 3.99 M/uL (4.20-5.40); White Blood Count 8.04 K/ul (4.8-10.8)
[2024-05-06] MEDS: ASPIRIN CHEW 324 MG PO STA (16:53)
[2024-05-06] MEDS: NITROGLYCERIN SL 0.4 MG/TAB TAB SL PRN (16:54)
[2024-05-06 17:05] LABS: Albumin Globulin Ratio 1.7 (0.9-2); Albumin Level 4.4 gm/dl (3.4-5.0); BUN Creatinine Ratio 14.4 (10-20); Bilirubin,Total 0.5 mg/dl (0.2-1.0); Calcium 9.4 mg/dl (8.6-10.3); Creatinine Clr Calc Pharmacy 53.4 ml/min; Globulin 2.6 gm/dl (2.5-4.0); Potassium 3.7 mmol/L (3.5-5.1)
[2024-05-06 17:10] LABS: Partial Thromboplastin Ratio 0.9; Partial Thromboplastin Time 25 Seconds (21-31); Prothrombin Time 10.4 Seconds (9.0-12.0); Troponin I High Sensitivity 3.3 pg/ml (0-14)
--- NOTE | 2024-05-06 17:32 | History & Physical Report ---
Date of Service May 06, 2024 Assessment & Plan (1) Chest pain: (2) Nonischemic cardiomyopathy: (3) Non-occlusive coronary artery disease: Plan: Patient is 59-year-old female with PMH HTN, HLD, nonobstructive CAD, dilated nonischemic cardiomyopathy, incomplete LBBB, genetic risk for QT prolongation, history of palpitations secondary to PVCs, SVT, chronic back pain prestented to ER with c/o CP x 1 day with radiation to back between shoulder blades, left neck and left axilla. Denies noted SOB. Today in ER vitals stable. Initial troponin negative EKG: sinus rhythm, rate 69, Q wave septal leads per my interpretation. (Q waves noted on EKG on 09/24/22) CXR: 1. No acute cardiopulmonary disease. New prominent soft tissue density in the left lung base which is at least partially accounted for by the diaphragm. Could reflect new extension of fat through a diaphragmatic hernia. In ER patient given 324mg aspirin and total 3 doses of SL nitro with CP from 8 out of 10 down to 1 out of 10 Repeat BP at 17:49 BP left arm: 135/83. Right arm BP: 132/84 02/05/2022 exercise stress echo was without evidence of ischemia 10/08/2021 echo: EF: 45-49%, grade 1 diastolic dysfunction, mild TR, no evidence of pulmonary hypertension, proximal ascending thoracic aorta is borderline enlarged 06/17/2021 cardiac cath: 30% mid OM1 stenosis, otherwise normal coronary arteries CHEST PAIN R/O ACS, dissection. CTA chest pending to R/O dissection Give IVF after CT contrast study Repeat EKG in am Will trend troponin Echo Continue home aspirin, rosuvastatin, metoprolol succinate, Entresto, Jardiance Will hold home spironolactone tomorrow morning and reassess Lipid panel in am-lipid panel, ?statin Nitro prn CP and repeat EKG for CP NPO [facility] consult CBC, BMP in am (4) Degenerative disc disease: Plan: Chronic back pain Continue home gabapentin, duloxetine (5) GERD (gastroesophageal reflux disease): Plan: Continue PPI DVT Prophylaxis SCDs for now Admit telemetry Full code as per discussion with pt Follows with Dr Ethan Lyles for routine care Pt was seen and care coordinated with Dr Durant. See addendum I spent a total of 60 minutes reviewing notes, outpatient records, labs, medication, coordinating, documenting and providing care for this patient excluding time spent in the performance of separately billed services. History of Present Illness Chief Complaint: CP Primary Care Provider: Ethan Lyles DO Patient is 59-year-old female with PMH HTN, HLD, nonobstructive CAD, dilated nonischemic cardiomyopathy, incomplete LBBB, genetic risk for QT prolongation, history of palpitations secondary to PVCs, SVT, chronic back pain prestented to ER with c/o CP x 1 day. Patient states yesterday woke up with burning type sensation to left chest. She thought it might be heartburn and tried TUMS without relief. Throughout the day tried additional TUMS, Pepto-bismol, and sprite without relief. Describes pain as becoming sharp. Pain between shoulder blades started yesterday. States didn't sleep well last night secondary to pain. States pain has been constant. Today pain continues and now pain to left side of neck and left axilla. State pain 8 out of 10 on pain scale. Checked BP at home this morning and was 126/90. Denies worse pain with walking around house. Drinking water yesterday without change in pain. Had decreased appetite yesterday, but didn't notice eating altering the CP. Slight nausea. Denies vomiting. Feels generally weak and out of energy. [place] like couldn't take a full breath but denies noting SOB. Denies leg pain or swelling, fever/chills, diaphoresis, diarrhea, constipation, SAMSON, dizziness, syncope, vision changes, palpitations, cough, sore throat, rhinorrhea, abdominal pain, paresthesias, extremity weakness, extremity edema, rashes, urinary symptoms. Allergies Allergy/AdvReac Type Severity Reaction Status Date / Time diphenhydramine Allergy Intermediate HEART RACES Verified 11/05/22 08:39 Home Medications Medication Instructions Recorded Confirmed Type gabapentin 300 mg capsule See Rx Instructions .Route .COMPLEX 10/13/18 05/06/24 History loratadine 10 mg tablet (Claritin) 10 mg PO QPM 10/13/18 05/06/24 History montelukast 10 mg tablet 10 mg PO PM 10/13/18 05/06/24 History (Singulair) metoprolol succinate 50 mg See Rx Instructions .Route .COMPLEX 06/21/21 05/06/24 History tablet,extended release 24 hr omeprazole 20 mg capsule,delayed 20 mg PO DAILYBB 06/21/21 05/06/24 History release sennosides 8.6 mg tablet (Senokot) 17.2 mg PO BID PRN Constipation 06/21/21 05/06/24 History sumatriptan succinate 50 mg tablet 50 mg PO DAILY PRN Migraine 06/21/21 05/06/24 History Headache empagliflozin 10 mg tablet 10 mg PO QAM 09/13/22 05/06/24 History (Jardiance) ezetimibe 10 mg tablet 10 mg PO QAM 09/13/22 05/06/24 History multivitamin with minerals 1 tab PO QAM 09/13/22 05/06/24 History rosuvastatin 40 mg tablet 40 mg PO QAM 09/13/22 05/06/24 History sacubitril 97 mg-valsartan 103 mg 1 tab PO BID 09/13/22 05/06/24 History tablet (Entresto) spironolactone 25 mg tablet 12.5 mg PO QAM 09/13/22 05/06/24 History aspirin 81 mg capsule 81 mg PO QAM 09/24/22 05/06/24 History duloxetine 20 mg capsule,delayed 20 mg PO DAILY 05/06/24 05/06/24 History release Past Med/Surg History Problem List (Updated 05/06/24 @ 18:24 by Shahana Martinez PA-C) Non-occlusive coronary artery disease Nonischemic cardiomyopathy Chest pain Endometrial polyp (Acute) Acute pelvic pain (Acute 07/19/13) Fibroids (Acute) Fibroids (Acute) Menorrhagia (Acute 10/01/13) Dysmenorrhea (Acute 10/01/13) Leiomyoma (Acute 10/01/13) Simple endometrial hyperplasia without atypia (Acute 10/01/13) Abdominal pain (Acute) Gastroenteritis (Acute) History of hysterectomy Acute headache (Acute) Encounter for pre-operative examination Arthritis Back problem Hemorrhoids (Acute) Heart disease per pt reason for jardiance--follows with Dr. Kumar High cholesterol Medical History Heart failure EF 45-49% on 09/2021 echo, mild dilated nonischemic cardiomyopathy CAD (coronary artery disease) 30% stenosis of OM1 History of anemia Degenerative disc disease GERD (gastroesophageal reflux disease) Migraine Asthma inhaler prn Surgical History H/O hemorrhoidectomy (09/26/22) Anorectal Exam under Anesthesia, Hemorrhoidectomy(Not Applicable) - Ricardo Biggs DO History of cardiac cath 06/21/[address] [facility] no stents placed History of hysterectomy History of arthroscopy LEFT KNEE Fusion of spine x2--last Cervical Disectomy/fusion 11/02/18 C6-C7, C7-T1 @ [facility]--per pt some limitation moving neck backwards. Grade 1 view, glidescope 3, ETT 7. History of colonoscopy History of tooth extraction History of tonsillectomy History of adenoidectomy History of endoscopic sinus surgery Family History Father Diabetes Family history of diabetes mellitus Aunt Cancer Mother Hypertension Other No family history of adverse response to anesthesia Social History Smoking Status: Former smoker Second Hand Exposure: No; Do You Dip or Chew Tobacco: No; Hx Alcohol Use: No Hx Substance Use: No Preferred Language: Gabonese Communication Ability: Effective Visual Impairment: No Limitations Neon Sign Maker Required: No Beliefs That Will Affect Care: None marital status: Current Living Situation: Spouse current occupational status: disabled How many Children do You have: 2 Feels Safe at Home: Yes during the past year weight has: remained stable Assistive Devices: Glasses Review of Systems Review of Systems: All systems reviewed & are unremarkable except as noted in HPI & below Physical Exam Physical Exam: PE per Dr Durant Results & Data Results & Data Vital Signs (Past 12 Hours) Vital Signs Temp Pulse Pulse Resp BP BP Pulse Ox 05/06/24 17:08 64 18 119/69 98 05/06/24 17:04 77 18 123/78 96 05/06/24 16:59 71 18 137/76 97 05/06/24 16:55 99 05/06/24 16:52 72 18 130/82 99 05/06/24 16:19 85 05/06/24 16:06 36.3 C L 81 81 H 147/84 H 99 O2 Del Method 05/06/24 17:08 Room Air 05/06/24 17:04 Room Air 05/06/24 16:59 Room Air 05/06/24 16:55 Room Air 05/06/24 16:52 Room Air 05/06/24 16:19 05/06/24 16:06 Room Air Laboratory Results Short CBC 05/06/24 Range/Units 16:22 WBC 8.04 (4.8-10.8) K/ul Hgb 12.6 (12.0-16.0) g/dl Hct 38.0 (37.0-47.0) % Plt Count 253 (130-400) K/uL BMP 05/06/24 16:22 Sodium 142 Potassium 3.7 Chloride 108 H Carbon Dioxide 26 BUN 15 Creatinine 1.04 Glucose 112 H Calcium 9.4 Liver Function 05/06/24 Range/Units 16:22 Total Bilirubin 0.5 (0.2-1.0) mg/dl AST 21 (13-39) U/L ALT 15 (7-52) U/L Alkaline Phosphatase 53 (34-104) U/L Albumin 4.4 (3.4-5.0) gm/dl Diagnostic Findings Chest X-Ray 05/06/24 16:17 EXAM: Radiograph of the Chest 1 View INDICATION: Chest pain. TECHNIQUE: Frontal view of the chest. COMPARISON: 10/27/2018 and 07/01/2014. FINDINGS: Lungs and pleural spaces: There is a new soft tissue density projecting in the left base likely at least partially reflecting the diaphragm. Heart: Shape and configuration within normal limits allowing for technique. Mediastinum: Normal contour. Bones/joints: Visualized portions of the cervicothoracic hardware intact. No acute osseous abnormality. Soft tissues: No abnormality noted. No radiopaque foreign body noted. Upper abdomen: No abnormality noted. IMPRESSION: 1. No acute cardiopulmonary disease. 2. New prominent soft tissue density in the left lung base which is at least partially accounted for by the diaphragm. Could reflect new extension of fat through a diaphragmatic hernia. This could be further assessed if clinically warranted with CT chest. ACT 112: Negative or not required by law. Electronically signed by Kristina Lindsay 05-06-2024 4:38 PM Supervising Physician Co-Signing Physician Notes Attending Addendum: Case reviewed with the advanced practitioner. I have personally performed a history and physical examination on the patient. I have reviewed the advanced practitioner's documentation on the date of service referenced in note, and I agree with, and take responsibility for the plan of care. please refer to her notes for full details patient seen and examined, records reviewed by myself as well on exam, patient seen resting in bed, comfortable states chest discomfort gradually relieved by successive SL nitro doses given at the ER- 0-05/07 on exam also radiates to midback no other symptoms VS noted and reviewed oriented x3, not in distress, speaks in sentences with no effort nor accessory muscle use normal rate, regular rhythm, no murmurs clear breath sounds bilaterally non distended, soft, nontender no bipedal edema, erythema, warmth no neuro deficits all labs, imaging noted and reviewed ASSESSMENT AND PLAN> CHEST PAIN R/O UNSTABLE ANGINA NON ISCHEMIC CARDIOMYOPATHY cardiac cath 06/19: 30% mid OM1 stenosis Otherwise normal coronary arteries. troponin x 1 negative, check 2nd and 3rd EKG: no signs of acute ischemia, infarct echo continue usual ASA, Metoprolol, Entresto, Rosuvastatin Cardiology consulted check CT chest to r/o aortic dissection other diagnoses and plan of care as per advanced practitioner's notes Jesus Manuel Durant MD
[2024-05-06] MEDS: OPTIRAY 320 125ml IV ONE (19:14)
--- NOTE | 2024-05-06 20:17 | CT Scan Report ---
Exam(s): CTA CHEST W/WO Contrast IV Amt: 118cc optiray 320 EXAM: CT Angiography Chest Without and With Intravenous Contrast CLINICAL HISTORY: cp radiate back. TECHNIQUE: Axial computed tomographic angiography images of the chest without and with intravenous contrast using aortic dissection protocol. CTDI is 36. 67 mGy and DLP is 822.65 mGy-cm. Automated exposure control was utilized for the study. A dose lowering technique was utilized adhering to the principles of ALARA. MIP reconstructed images were created and reviewed. CONTRAST: Patient received 118cc optiray 320 of IV contrast COMPARISON: Plain radiograph performed earlier FINDINGS: Aorta: Motion artifact in the ascending thoracic aorta. No thoracic aortic dissection is identified. No thoracic aortic aneurysm, with the mid ascending aorta measuring 3.4 x 3.5 cm. Precontrast imaging demonstrates no intimal wall abnormality involving the thoracic aorta. No acute periaortic abnormality. Pulmonary arteries: No evidence for pulmonary embolism. Great vessels of aortic arch: No acute findings. No dissection. No arterial occlusion or significant stenosis. Lungs: No focal airspace consolidation with minimal dependent subsegmental atelectatic changes. No mass. Pleural space: Unremarkable. No significant effusion. No pneumothorax. Heart: Unremarkable. No cardiomegaly. No significant pericardial effusion. Bones/joints: The thoracic spine is unremarkable. Incidental anterior fusion from C4-C7 levels. No acute fracture. No dislocation. Soft tissues: Unremarkable. Lymph nodes: Unremarkable. No enlarged lymph nodes. IMPRESSION: 1. No thoracic aortic dissection is identified. No thoracic aortic aneurysm or intimal wall abnormality identified. 2. No pulmonary embolism. 3. No significant osseous abnormality. 4. No focal airspace consolidation with minimal dependent atelectatic changes noted posteriorly. Electronically signed by: Romaine Do MD 05/06/24 20:16 PM
[2024-05-06] MEDS ORDERED: NITROGLYCERIN SL 0.4 MG/TAB TAB SL PRN (21:00)
[2024-05-06] MEDS ORDERED: PROMETHAZINE 12.5 MG/50.5 ML BAG IV PRN (21:00)
[2024-05-06] MEDS ORDERED: POLYETHYLENE (MIRALAX) 17 GM PACK PO PRN (21:00)
[2024-05-06] MEDS ORDERED: ACETAMINOPHEN 325 MG TAB PO PRN (21:00)
[2024-05-06] MEDS: SODIUM CHLORIDE 0.9% 1,000 ML IV SCH (21:55)
[2024-05-06] MEDS: METOPROLOL SUCC 50MG EXT REL TAB PO SCH (21:55)
[2024-05-06] MEDS: GABAPENTIN 300 MG CAP PO SCH (21:56)
[2024-05-06] MEDS: LORATADINE 10 MG TAB PO SCH (21:56)
[2024-05-06] MEDS: MONTELUKAST SODIUM 10 MG TABLET PO SCH (21:56)
[2024-05-06] MEDS: VALSARTAN/SACUBITRIL 103/97MG TAB PO SCH (21:56)
[2024-05-07 04:29] VITALS: O2SAT 98
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
--- OUTSIDE RECORDS SUMMARY | 2024-05-07 05:09 | External Medical Summary | Summary of Care ---
Author Name Unknown Organization [facility] Address [address] [place] [address] Phone [phone] Care Team Providers Care Traffic Engineering Director Name Role Phone Amparo Brantley DO Primary Care Provider [phone] Reason for Visit * Reason Comments eRx-Medication Refill Encounter Details Date Type Department Care Team (Late st Contact Info) Description 04/14/2024 Refill Family Practice [facility] [address] [facility] [place] [address] Amparo Brantley DO [address] [facility] [place] [address] Dilated cardiomyopathy (HCC); HFrEF (heart failure with reduced ejection fraction) ([facility]); HTN, goal below 130/80; Palpitations; Hyperlipidemia with target LDL less than 70 Allergies Active Allergy Reactions Criticality Noted Date Comments Diphenhydramine Hcl 02/08/2010 Heart races/reaction to benadryl documented as of this encounter (statuses as of 04/16/2024) Medications SENOKOT S 8.6-50 MG PO TABS [...] 2 02/23/20 21 Active D3 50 MCG (2000 UT) Oral Tablet (Cholecalciferol) Take by mouth [...] 97-103 mg per tab)Indications:N ICM (nonischemic cardiomyopathy) ([facility]),HFrEF (heart failure with reduced ejection fraction) ([facility]) Take 1 Tablet by mouth in the morning and 1 Tablet before bedtime. 180 Tablet 3 05/16/19 24 Active Empagliflozin 10 MG Oral Tablet (Jardiance)Indica tions:NICM (nonischemic cardiomyopathy) (HCC),HFrEF (heart failure with reduced ejection fraction) (HCC) Take 1 Tablet by mouth in the morning. 90 Tablet 3 05/16/19 24 Active Montelukast Sodium 10 MG Oral Tablet (Singulair)Indica tions:Asthma, allergic TAKE 1 TABLET BY MOUTH AT BEDTIME 90 Tablet 3 05/27/19 24 Active Spironolactone 25 MG Oral Tablet (Aldactone)Indica tions:Dilated cardiomyopathy (HCC),HFrEF (heart failure with reduced ejection fraction) ([facility]),HTN, goal below 130/80,Palpitatio ns TAKE 1/2 (ONE-HALF) TABLET BY MOUTH IN THE MORNING 45 Tablet 3 08/05/19 24 Active SUMAtriptan Succinate 50 MG Oral Tablet (Imitrex)Indicati ons:Migraine variant TAKE 1 TABLET BY MOUTH AT ONSET OF MIGRAINE, MAY REPEAT EVERY 2 HRS NEEDED. MAX 4 TABLETS PER 24HRS 6 Tablet 5 09/01/19 24 Active Omeprazole 20 MG Oral Capsule [...] THE MORNING 90 Tablet 04/02/20 24 Active Metoprolol Succinate ER 50 MG Oral Tablet Extended Release 24 Hour (toPROL XL)Indications:Di lated cardiomyopathy (HCC),HFrEF (heart failure with reduced ejection fraction) (HCC),HTN, goal below 130/80,Palpitatio ns,Hyperlipidemia with target LDL less than 70 TAKE 1 TABLET BY MOUTH IN THE MORNING AND 1 & 1/2 (ONE & ONE-HALF) IN THE EVENING 200 Tablet 04/15/20 24 Active Metoprolol Succinate ER 50 MG Oral Tablet Extended Release 24 Hour (toPROL XL)Indications:Di lated cardiomyopathy (HCC),HFrEF (heart failure with reduced ejection fraction) (HCC),HTN, goal below 130/80,Palpitatio ns,Hyperlipidemia with target LDL less than 70 TAKE 1 TABLET BY MOUTH IN THE MORNING AND 1 & 1/2 (ONE & ONE-HALF) IN THE EVENING 200 Tablet 1 11/10/19 24 2023 Discontinued documented as of this encounter (statuses as of 04/16/2024) Active Problems Problem Noted Date Diagnosed Date [...] as of this encounter (statuses as of 04/16/2024) Resolved Problems Problem Noted Date Diagnosed Date [...] as of this encounter (statuses as of 04/16/2024) Immunizations Name Administration Dates Next Due Influenza, [...] 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 Patient was notified. Successfully contacted patient and provided [facility] message. * Telephone Encounter - Jonas Martel [facility] - 04/15/2024 10:07 AM ESTSigned Prescriptions: Disp Refills Metoprolol Succinate ER 50 MG Oral Tablet *200 Ta*0 Sig: TAKE 1 TABLET BY MOUTH IN THE MORNING AND 1 & 1/2 (ONE & ONE-HALF) IN THE EVENING Authorizing Provider: AMPARO BRANTLEY Ordering User: JONAS MARTEL * Telephone Encounter - Jonas Martel [facility] - 04/15/2024 10:06 AM EST Please contact patient so that an appointment can be scheduled with her PRIMARY CARE provider. Refill authorized to hold patient over in the mean time. Last Visit: 05/21/2023 (in office), Visit date not found (telemedicine) Return in about 6 months (around 11/19/2023). Next Visit: Visit date not found Nishi WilsonPh. Clinical Pharmacist [facility] [address] [place] [address], [address]: [phone] 04/15/2024,10:06 AM documented in this encounter Plan of Treatment [...] 02/28/2022, Additional history exists COVID-19 Vaccine ( season) 2023 Influenza Vaccine (FLU shot) (#1) [...] as of this encounter Visit Diagnoses Diagnosis Dilated cardiomyopathy (HCC) Other primary cardiomyopathies HFrEF (heart failure with reduced ejection fraction) (HCC) HTN, goal below 130/80 Unspecified essential hypertension Palpitations Hyperlipidemia with target LDL less than 70 Other and unspecified hyperlipidemia documented in this encounter Care Teams Traffic Engineering Director Relationship Specialty Start Date End Date Amparo Brantley DO [address] [place] [address] PCP - General Family Medicine 05/06/17 documented as of this encounter
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
--- OUTSIDE RECORDS SUMMARY | 2024-05-07 05:10 | External Medical Summary | Summary of Care ---
Author Name Unknown Organization [facility] Address [address] [facility] [place] [address] Phone [phone] Care Team Providers Care Hansard Reporter Name Role Phone Rafal Ethan Kendrick DO Primary Care Provider [phone] Encounter Details Date Type Department Care Team (Late st Contact Info) Description 01/08/2024 Orders Only PATIENT PORTAL DO NOT DELETE THIS DEPT USED BY [place] [id number] Allergies Active Allergy Reactions Criticality Noted Date Comments Diphenhydramine Hcl 02/08/2010 Heart races/reaction to benadryl documented as of this encounter (statuses as of 01/08/2024) Medications Medication Sig Dispensed Refills Start Date [...] Cap 2 02/22/2021 Active D3 50 MCG (1999) Oral Tablet [...] as of this encounter (statuses as of 01/08/2024) Active Problems Problem Noted Date Diagnosed Date [...] as of this encounter (statuses as of 01/08/2024) Resolved Problems Problem Noted Date Diagnosed Date [...] as of this encounter (statuses as of 01/08/2024) Immunizations Name Administration Dates Next Due Influenza, [...] on file documented as of this encounter Plan of Treatment Scheduled Procedures [...] Tdap) 06/21/2023 06/21/2013, 10/25/1996 GFR 08/17/2023 08/16/2022, 03/09/2022, 02/28/2022, Additional history exists COVID-19 Vaccine ( - 2022- season) 2023 Influenza Vaccine (FLU shot) (#1) [...] filedocumented as of this encounter Care Teams Hansard Reporter Relationship Specialty Start Date End Date Ethan Lyles DO [address] [place] [address] PCP - General Family Medicine 05/06/17 documented as of this encounter
--- OUTSIDE RECORDS SUMMARY | 2024-05-07 05:10 | External Medical Summary | Summary of Care ---
Author Name Unknown Organization [facility] Address [address] [place] [address] Phone [phone] Care Team Providers Care Senior Architectural Designer Name Role Phone Amparo Brantley DO Primary Care Provider [phone] Reason for Visit * Reason Comments eRx-Medication Refill Encounter Details Date Type Department Care Team (Late st Contact Info) Description 01/03/2024 Refill Family Practice [facility] [address] [facility] [place] [address] Ampar[facility]ant[facility] [address] [facility] [address] Encounter for long-term (current) use of medications* Allergies Active Allergy Reactions Criticality Noted Date Comments Diphenhydramine Hcl 02/08/2010 Heart races/reaction to benadryl documented as of this encounter (statuses as of 01/05/2024) Medications Medication Sig Dispensed Refills Start Date [...] 97-103 mg per tab)Indications:KYLE M (nonischemic cardiomyopathy) ([facility]),HFrEF (heart failure with reduced ejection fraction) ([facility]) Take 1 Tablet by mouth in the morning and 1 Tablet before bedtime. 180 Tablet 3 4 Active Empagliflozin 10 MG Oral Tablet (Jardiance)Indicati ons:NICM (nonischemic cardiomyopathy) ([facility]),HFrEF (heart failure with reduced ejection fraction) ([facility]) Take 1 Tablet by mouth in the morning. 90 Tablet 3 4 Active Montelukast Sodium 10 MG Oral Tablet (Singulair)Indicati ons:Asthma, allergic TAKE 1 TABLET BY MOUTH AT BEDTIME 90 Tablet 3 4 Active DULoxetine HCl 20 MG Oral Capsule Delayed Release Particles (Cymbalta)Indicatio ns:Other migraine without status migrainosus, not intractable,Cervico genic migraine Take 1 Capsule by mouth in the morning. 30 Capsule 2 4 Active Spironolactone 25 MG Oral Tablet (Aldactone)Indicati ons:Dilated cardiomyopathy (HCC),HFrEF (heart failure with reduced ejection fraction) ([facility]),HTN, goal below 130/80,Palpitations TAKE 1/2 (ONE-HALF) TABLET [...] THE MORNING 90 Tablet 1 4 Active Omeprazole 20 MG Oral Capsule Delayed Release (PriLOSEC) Take 1 Capsule by mouth in the morning. 1 hour before the first meal of the day.. 90 Capsule 3 3 01/05/20 24 Discontinued Ezetimibe 10 MG Oral Tablet (Zetia) TAKE 1 TABLET BY MOUTH IN THE MORNING 90 Tablet 1 4 01/05/20 24 Discontinued documented as of this encounter (statuses as of 01/05/2024) Active Problems Problem Noted Date Diagnosed Date Dilated cardiomyopathy 05/21/2023 Nonobstructive atherosclerosis of coronary arter y 07/01/2022 Hyperlipidemia with target LDL less than 70 /09/2022 NICM (nonischemic cardiomyopathy) 10/24/2021 HFrEF (heart failure with reduced ejection fract ion) 10/24/2021 HTN, goal below 130/80 01/12/2021 Cervical spinal stenosis 01/11/2019 Asthma, allergic 05/20/2011 Asthma, mild persistent 03/08/2010 LUMB-LUMBOSAC DISC DEGEN 06/29/2003 Esophageal reflux 06/02/2002 Mitral valve disorder documented as of this encounter (statuses as of 01/05/2024) Resolved Problems Problem Noted Date Diagnosed Date [...] as of this encounter (statuses as of 01/05/2024) Immunizations Name Administration Dates Next Due Influenza, [...] encounter Miscellaneous Notes * Telephone Encounter - Blanca Bender RPh - 01/05/2024 11:11 AM EDTSigned Prescriptions: Disp Refills Omeprazole 20 MG Oral Capsule Delayed Rele*90 Cap*1 Sig: TAKE 1 CAPSULE BY MOUTH IN THE MORNING ONE HOUR BEFORE FIRST MEAL OF THE DAYAuthorizing Provider: AMPARO BRANTLEY User: BLANCA BENDER Ezetimibe 10 MG Oral Tablet (Zetia) 90 Tab*1 Sig: TAKE 1 TABLETBY MOUTH IN THE MORNINGAuthorizing Provider: AMPARO BRANTLEY User: BLANCA BENDER documented in this encounter Plan of Treatment Upcoming Encounters Date Type Department Care Team (Latest Contact Info) Description 01/07/2024 8:25 AM EDT Hospital Encounter OR [facility], Operating Room [facility] [address] [facility] [place] [address] Tray Hardy, DO [address] [place] [address] 01/07/2024 8:25 AM EDT - 01/07/2024 8:50 AM EDT Surgery OR [facility], Operating Room [facility] [address] [place] [phone] Tray Hardy, DO [address] [place] [address] INJECTION SPINE LUMBAR CERVICAL OR THORACIC Scheduled Orders Name Type Priority Associated Diagnoses Orde r Schedule VITAMIN B12 Lab Routine Encounter for long-term (current) use of medications Expected: 01/12/2024 (Approximate), Expires: 01/04/2025 Scheduled Procedures Name Priority Associated Diagnoses Date/Ti [...] as of this encounter Visit Diagnoses Diagnosis Encounter for long-term (current) use of medications- Primary Encounter for long-term (current) use of other medications Cervical radiculitis Brachial neuritis or radiculitis nos documented in this encounter Care Teams Senior Architectural Designer Relationship Specialty Start Date End Date Amparo Brantley DO [address] [place] [address] PCP - General Family Medicine 05/06/17 documented as of this encounter
--- OUTSIDE RECORDS SUMMARY | 2024-05-07 05:10 | External Medical Summary | Summary of Care ---
Author Name Unknown Organization [facility] Address [address] [place] [address] Phone [phone] Care Team Providers Care Mud Grinder Name Role Phone RafalAmparo Aroldo ROMERO Primary Care Provider [phone] Reason for Visit * Reason Comments eRx-Medication Refill Encounter Details Date Type Department Care Team (Late st Contact Info) Description 02/13/2024 Refill Family Practice [facility] [address] [facility] [place] [address] Donaldo Dwyer MD [address] [place] [address] [place] [address] Cervical spinal stenosis Allergies Active Allergy Reactions Criticality Noted Date Comments Diphenhydramine Hcl 02/08/2010 Heart races/reaction to benadryl documented as of this encounter (statuses as of 02/17/2024) Medications Medication Sig Dispensed Refills Start Date [...] 97-103 mg per tab)Indications:KYLE M (nonischemic cardiomyopathy) ([facility]),HFrEF (heart failure with reduced ejection fraction) ([facility]) Take 1 Tablet by mouth in the [...] (HCC),HFrEF (heart failure with reduced ejection fraction) ([facility]),HTN, goal below 130/80,Palpitations TAKE 1/2 (ONE-HALF) TABLET [...] THE MORNING 90 Tablet 1 4 Active Gabapentin 300 MG Oral Capsule (Neurontin)Indicati ons:Cervical spinal stenosis TAKE 1 CAPSULE BY MOUTH IN THE MORNING AND 1 WITH LUNCH AND 2 AT BEDTIME 360 Capsule 4 Active DULoxetine HCl 20 MG Oral Capsule Delayed Release Particles (Cymbalta)Indicatio ns:Other migraine without status migrainosus, not intractable,Cervico genic migraine Take 1 Capsule by mouth in the morning. 30 Capsule 3 4 Active Gabapentin 300 MG Oral Capsule (Neurontin)Indicati ons:Cervical spinal stenosis TAKE 1 CAPSULE BY MOUTH IN THE MORNING 1 WITH LUNCH AND 2 AT BEDTIME 360 Capsule 4 02/17/20 24 Discontinued documented as of this encounter (statuses as of 02/17/2024) Active Problems Problem Noted Date Diagnosed Date [...] as of this encounter (statuses as of 02/17/2024) Resolved Problems Problem Noted Date Diagnosed Date [...] as of this encounter (statuses as of 02/17/2024) Immunizations Name Administration Dates Next Due Influenza, [...] encounter Miscellaneous Notes * Telephone Encounter - Amparo Brantley DO - 02/17/2024 5:09 PM EDTSigned Prescriptions: Disp Refills Gabapentin 300 MG Oral Capsule (Neurontin) 360 Ca*0 Sig: TAKE 1 CAPSULE BY MOUTH IN THE MORNING AND 1 WITH LUNCH AND 2 AT BEDTIME Authorizing Provider: AMPARO BRANTLEY * Telephone Encounter - Lorri Johnson LPN - 02/17/2024 1:14 PM EDTPending Prescriptions: Disp Refills Gabapentin 300 MG Oral Capsule 360 Ca*0 Sig: TAKE 1 CAPSULE BY MOUTH IN THE MORNING AND 1 WITH LUNCH AND 2 AT BEDTIME * Telephone Encounter - Sparkle Senior - 02/13/2024 7:33 PM EDTPending Prescriptions: Disp Refills Gabapentin 300 MG Oral Capsule 360 Ca*0 Sig: TAKE 1 CAPSULE BY MOUTH IN THE MORNING AND 1 WITH LUNCH AND 2 AT BEDTIME documented in this encounter Plan of Treatment [...] as of this encounter Visit Diagnoses Diagnosis Cervical spinal stenosis Spinal stenosis in cervical region documented in this encounter Care Teams Mud Grinder Relationship Specialty Start Date End Date Amparo Brantley DO [address] [place] [address] PCP - General Family Medicine 05/06/17 documented as of this encounter
--- OUTSIDE RECORDS SUMMARY | 2024-05-07 05:11 | External Medical Summary | Summary of Care ---
Author Name Unknown Organization [facility] Address [address] [place] [address] Phone [phone] Care Team Providers Care Multiple Tube Winding Machine Operator Name Role Phone Amparo Brantley DO Primary Care Provider [phone] Reason for Visit * Reason Comments eRx-Medication Refill Encounter Details Date Type Department Care Team (Late st Contact Info) Description 11/08/2023 Refill Family Practice [facility] [address] [place] [address] Amparo Brantley DO [address] [facility] [place] [address] Dilated cardiomyopathy (HCC); HFrEF (heart failure with reduced ejection fraction) ([facility]); HTN, goal below 130/80; Palpitations; Hyperlipidemia with target LDL less than 70 Allergies Active Allergy Reactions Criticality Noted Date Comments Diphenhydramine Hcl 02/08/2010 Heart races/reaction to benadryl documented as of this encounter (statuses as of 11/10/2023) Medications Medication Sig Dispensed Refills Start Date [...] affected area. 30 g 5 3 Active Omeprazole 20 MG Oral Capsule Delayed Release (PriLOSEC) Take 1 Capsule by mouth in the morning. 1 hour before the first meal of the day.. 90 Capsule 3 3 Active Aspirin 81 MG Oral CapsuleIndications: [...] the morning. 90 Tablet 3 4 Active Gabapentin 300 MG Oral Capsule (Neurontin)Indicati ons:Cervical spinal stenosis TAKE 1 CAPSULE BY MOUTH IN THE MORNING AND WITH LUNCH AND 3 AT BEDTIME 450 Capsule 1 4 Active Montelukast Sodium 10 MG Oral Tablet (Singulair)Indicati ons:Asthma, allergic TAKE 1 TABLET BY MOUTH AT BEDTIME 90 Tablet 3 4 Active Ezetimibe 10 MG Oral Tablet [...] THE EVENING 200 Tablet 1 4 Active Metoprolol Succinate ER 50 MG Oral Tablet Extended Release 24 Hour (Toprol XL)Indications:Dila ambrosio cardiomyopathy (HCC),HFrEF (heart failure with reduced ejection fraction) (HCC),HTN, goal below 130/80,Palpitations ,Hyperlipidemia with target LDL less than 70 Take 1 tablet in the morning and 1.5 tablets in the evening. 200 Tablet 3 3 11/10/19 24 Discontinued documented as of this encounter (statuses as of 11/10/2023) Active Problems Problem Noted Date Diagnosed Date [...] as of this encounter (statuses as of 11/10/2023) Resolved Problems Problem Noted Date Diagnosed Date [...] as of this encounter (statuses as of 11/10/2023) Immunizations Name Administration Dates Next Due Influenza, Whole Virus 02/01/2010 Pneumococcal Polysaccharide PPV23 (Pneumovax) Seasonal Influenza, PF, 6 M & above, IM , (FluLaval or Fluzone) 03/24/2019 Seasonal Influenza, Split, IIV3, With Preserve, Inj 05/20/2011 TDAP (age 10 and older)(Boostrix) 06/21/2013 [...] encounter Miscellaneous Notes * Telephone Encounter - Nicolas Lutz [facility] - 11/10/2023 11:28 AM EDTSigned Prescriptions: Disp Refills Metoprolol Succinate ER 50 MG Oral Tablet *200 Ta*1 Sig: TAKE 1 TABLET BY MOUTH IN THE MORNING AND 1 & 1/2 (ONE & ONE-HALF) IN THE EVENINGAuthorizing Provider: AMPARO BRANTLEY User: NICOLAS KRISHNAMURTHY documented in this encounter Plan of Treatment Upcoming Encounters Date Type Department Care Team (Latest Contact Info) Description 11/14/2023 9:00 AM EDT Imaging Radiology [address] [place] [address] 11/25/2023 1:40 PM EDT Office Visit Family Practice [facility] [place] [address] [place] [address] Amparo Brantley, DO [address] [facility] [place] [address] [address] 01/07/2024 8:25 AM EDT Hospital Encounter OR [facility], Operating Room [facility] [address] [place] [phone] Tray Hardy, DO [address] [place] [phone] 01/07/2024 8:25 AM EDT - 01/07/2024 8:50 AM EDT Surgery OR [facility], Operating Room [facility] [address] [place] [phone] Tray Hardy, DO [address] [place] [address] INJECTION SPINE LUMBAR CERVICAL OR THORACIC Scheduled [...] of 2) 2017 Depression Screening 10/28/2019 10/27/2018 COVID-19 Vaccine (1 - season) 2022 Colonoscopy 05/08/2023 05/08/2018, 05/08/2018 Colorectal Cancer Screening 05/08/2023 DTaP,Tdap,and Td Vaccines (2 - Td or Tdap) 06/21/2023 06/21/2013, 10/25/1996 GFR 08/17/2023 08/16/2022, 03/0 09/2022, 02/28/2022, Additional history exists Mammogram 11/13/2023 11/12/2022, 10/26, 11/02/2020, Additional history exists Influenza Vaccine (FLU shot) (#1) 2023 03/24/2019, 05/20/2011, 02/01/2010 Hepatitis B Vaccine Completed 05/23/1997, 05/23/1997, 12/02/1996, [...] less than 70 Other and unspecified hyperlipidemia Cervical radiculitis Brachial neuritis or radiculitis nos documented in this encounter Care Teams Multiple Tube Winding Machine Operator Relationship Specialty Start Date End Date Amparo Brantley DO [address] [place] [address] PCP - General Family Medicine 05/06/17 documented as of this encounter
--- OUTSIDE RECORDS SUMMARY | 2024-05-07 05:11 | External Medical Summary | Summary of Care ---
Author Name Unknown Organization [facility] Address [address] [place] [address] Phone [phone] Care Team Providers Care Drier Operator Name Role Phone Ethan Lyles DO Primary Care Provider [phone] Reason for Visit * Reason Comments eRx-Medication Refill Encounter Details Date Type Department Care Team (Late st Contact Info) Description 11/19/2023 Refill Family Practice [facility] [address] [facility] [place] [address] Ethan Lyles DO 200 [facility] [place] [address] Cervical spinal stenosis Allergies Active Allergy Reactions Criticality Noted Date Comments Diphenhydramine Hcl 02/08/2010 Heart races/reaction to benadryl documented as of this encounter (statuses as of 11/20/2023) Medications Medication Sig Dispensed Refills Start Date [...] 97-103 mg per tab)Indications:KYLE M (nonischemic cardiomyopathy) ([facility]),HFrEF (heart failure with reduced ejection fraction) ([facility]) Take 1 Tablet by mouth in the morning and 1 Tablet before bedtime. 180 Tablet 3 4 Active Empagliflozin 10 MG Oral Tablet (Jardiance)Indicati ons:NICM (nonischemic cardiomyopathy) ([facility]),HFrEF (heart failure with reduced ejection fraction) ([facility]) Take 1 Tablet by mouth in [...] 2 AT BEDTIME 360 Capsule 4 Active Gabapentin 300 MG Oral Capsule (Neurontin)Indicati ons:Cervical spinal stenosis TAKE 1 CAPSULE BY MOUTH IN THE MORNING AND WITH LUNCH AND 3 AT BEDTIME 450 Capsule 1 4 11/20/19 24 Discontinued documented as of this encounter (statuses as of 11/20/2023) Active Problems Problem Noted Date Diagnosed Date [...] as of this encounter (statuses as of 11/20/2023) Resolved Problems Problem Noted Date Diagnosed Date [...] as of this encounter (statuses as of 11/20/2023) Immunizations Name Administration Dates Next Due Influenza, [...] encounter Miscellaneous Notes * Telephone Encounter - Donaldo Salguero MD - 11/20/2023 11:19 AM EDTSigned Prescriptions: Disp Refills Gabapentin 300 MG Oral Capsule (Neurontin) 360 Ca*0 Sig: TAKE 1 CAPSULE BY MOUTH IN THE MORNING 1 WITH LUNCH AND 2 AT BEDTIME Authorizing Provider: DONALDO SALGUERO * Telephone Encounter - Madeline Garcia LPN - 11/20/2023 9:43 AM EDTPending Prescriptions: Disp Refills Gabapentin 300 MG Oral Capsule 360 Ca*0 Sig: TAKE 1 CAPSULE BY MOUTH IN THE MORNING 1 WITH LUNCH AND 2 AT BEDTIME * Telephone Encounter - Madeline Garcia, WRAP KNITTING MACHINE OPERATOR - 11/20/2023 9:43 AM EDT Pending Prescriptions: Disp Refills Gabapentin 300 MG Oral Capsule (Neurontin*360 Ca*0 Sig: TAKE 1 CAPSULE BY MOUTH IN THE MORNING 1 WITH LUNCH AND 2 AT BEDTIME Last Visit: 05/21/2023 (in office), Visit date not found (telemedicine) Next Visit: Visit date not found Last date the medication was ordered: 05/21/2023 Patient Active Problem List Diagnosis Esophageal reflux LUMB-LUMBOSAC DISC DEGEN Mitral valve disorder Asthma, mild persistent Asthma, allergic Cervical spinal stenosis HTN, goal below 130/80 NICM (nonischemic cardiomyopathy) (HCC) HFrEF (heart failure with reduced ejection fraction) ([facility]) Nonobstructive atherosclerosis of coronary artery Hyperlipidemia with target LDL less than 70 Dilated cardiomyopathy ([facility]) Labs: Lab Results Component Value Date/Time CREATININE - [facility] 1.1 (H) 08/16/2022 10:47 AM CREATININE - [facility] 1.0 09/29/2018 11:39 AM CREATININE-OUTSIDE LAB 0.92 01/19/2016 12:00 AM Lab Results Component Value Date/Time POTASSIUM - [facility] 4.6 08/16/2022 10:47 AM POTASSIUM - [facility] 4.9 09/29/2018 11:39 AM POTASSIUM-OUTSIDE LAB 4.0 01/19/2016 12:00 AM Lab Results Component Value Date/Time TSH - [facility] 1.78 06/15/2021 04:46 PM TSH - [facility] 2.14 09/07/2002 02:25 PM Lab Results Component Value Date/Time LDL CHOLESTEROL (CALCULATED) - [facility] 143 (H) 07/01/2022 01:59 PM LDL CHOLESTEROL (CALCULATED) - [facility] 84 02/21/2022 10:11 AM LDL CHOLESTEROL (CALCULATED) - [facility] 107 12/14/2019 10:57 AM LDL CHOLESTEROL (CALCULATED) - [facility] 105 06/21/2013 09:16 AM LDL CHOLESTEROL (DIRECT MEASURE) - [facility] 50 11/01/2022 10:34 AM LDL CHOLESTEROL (DIRECT MEASURE) - [facility] NOT APPLICABLE 12/14/2019 10:57 AM LDL CHOLESTEROL (DIRECT MEASURE) - [facility] NOT APPLICABLE 06/21/2013 09:16 AM Lab Results Component Value Date/Time ALT - [facility] 13 07/01/2022 01:59 PM ALT-OUTSIDE LAB 19 01/19/2016 12:00 AM Hemoglobin AIC Results: No results found for: "HEMOGLOBIN A1C" * Telephone Encounter - Sparkle Senior - 11/20/2023 4:17 AM EDTPending Prescriptions: Disp Refills Gabapentin 300 MG Oral Capsule 360 Ca*0 Sig: TAKE 1 CAPSULE BY MOUTH IN THE MORNING 1 WITH LUNCH AND 2 AT BEDTIME documented in this encounter Plan of Treatment Upcoming Encounters Date Type Department Care Team (Latest Contact Info) Description 01/07/2024 8:25 AM EDT Hospital Encounter OR [facility], Operating Room [facility] [address] [place] [phone] Tray Hardy DO [address] [place] [phone] 01/07/2024 8:25 AM EDT - 01/07/2024 8:50 AM EDT Surgery OR [facility], Operating Room [facility] [address] [place] [phone] rTay Hardy DO [address] [place] [phone] INJECTION SPINE LUMBAR CERVICAL OR THORACIC Scheduled [...] Screening 10/28/2019 10/27/2018 COVID-19 Vaccine (1 - 2022- season) 2022 Colonoscopy 05/08/2023 05/08/2018, 05/08/2018 Colorectal Cancer Screening 05/08/2023 DTaP,Tdap,and Td Vaccines (2 - Td or Tdap) 06/21/2023 06/21/2013, 10/25/1996 GFR 08/17/2023 08/16/2022, 03/0 09/2022, 02/28/2022, Additional history exists Influenza Vaccine (FLU shot) [...] spinal stenosis Spinal stenosis in cervical region Cervical radiculitis Brachial neuritis or radiculitis nos documented in this encounter Care Teams Drier Operator Relationship Specialty Start Date End Date Ethan Lyles DO [address] [place] [address] PCP - General Family Medicine 05/06/17 documented as of this encounter
[2024-05-07 06:59] LABS: Mean Corpuscular Hemoglobin 32.3 pg (25.0-34.0); Mean Corpuscular Hgb Conc 33.3 g/dL (32.0-36.0); Mean Platelet Volume 11.1 fL (9.4-12.4); Platelet Count 239 K/uL (130-400); RDW Coefficient of Variation 13.1 % (11.5-14.5); RDW Standard Deviation 46.8 fL (36.4-46.3); Red Blood Count 3.71 M/uL (4.20-5.40); White Blood Count 5.99 K/ul (4.8-10.8)
[2024-05-07 07:14] VITALS: RESP 18; TEMP 97.7
[2024-05-07 07:27] LABS: BUN Creatinine Ratio 11.2 (10-20); Calcium 8.9 mg/dl (8.6-10.3); Chol HDL Ratio 2.5 (0-5); Creatinine Clr Calc Pharmacy 52.4 ml/min; Potassium 4.6 mmol/L (3.5-5.1)
[2024-05-07] MEDS: GABAPENTIN 300 MG CAP PO SCH (08:06)
[2024-05-07] MEDS: DULoxetine HCL 20 MG CAP PO SCH (08:07)
[2024-05-07] MEDS: EMPAGLIFLOZIN 10 MG TAB PO SCH (08:07)
[2024-05-07] MEDS: METOPROLOL SUCC 50MG EXT REL TAB PO SCH (08:07)
[2024-05-07] MEDS: EZETIMIBE 10 MG TAB PO SCH (08:07)
[2024-05-07] MEDS: ASPIRIN 81 MG ECTAB PO SCH (08:07)
[2024-05-07] MEDS: ROSUVASTATIN CALCIUM 20 MG TAB PO SCH (08:08)
[2024-05-07] MEDS: PANTOprazole 40 MG TAB PO SCH (08:08)
[2024-05-07 08:16] VITALS: PULSE 66
--- NOTE | 2024-05-07 08:50 | Cardiology Consultation ---
Date of Consultation May 07, 2024 Assessment & Plan (1) Atypical chest pain: (2) Nonischemic cardiomyopathy: (3) Non-occlusive coronary artery disease: Plan 59-year-old female admitted with atypical chest discomfort. Prior ischemic evaluation unremarkable in 2021. No evidence of acute coronary syndrome since admission. Recommend exercise stress echocardiography for further risk stratification. Continue current cardiovascular medications including low-dose aspirin, Zetia, Toprol-XL, rosuvastatin, and Entresto. Further recommendations pending results of exercise stress echo. Thank you for allow me to participate in the care of your patient. History of Present Illness Reason for Consultation: Chest pain Requesting Physician: Shahana Martinez PA-C Attending Physician: Cammie Candelaria MD History of Present Illness 59-year-old female presents to the emergency department with chest pain over past 48 hours. Describes chest burning beginning on Friday morning. She woke in the a.m. with discomfort in her substernal and left-sided chest region. Over the preceding 48 hours the discomfort radiated to left upper arm as well as to her interscapular region. Due to ongoing discomfort she came to the ER for further evaluation and treatment 05/06/2024. Treated with sublingual nitro glycerin. States pain has significantly improved overnight. Slept comfortably. Reports an active lifestyle and walking daily for exercise. Denies any recent exertional chest discomfort or unusual shortness of breath. CTA of the chest negative for dissection or pulmonary embolus. ECG unremarkable. Cardiac enzymes negative x 3 sets. History of mild nonischemic cardiomyopathy. Cardiac catheterization performed 2021 demonstrating minimal, nonobstructive CAD. Most recent echocardiogram reporting left ventricular ejection fraction 45-49%. Preliminary review of bedside echocardiogram performed today demonstrates stable findings. Allergies Allergy/AdvReac Type Severity Reaction Status Date / Time diphenhydramine Allergy Intermediate HEART RACES Verified 11/05/22 08:39 Home Medications Medication Instructions Recorded Confirmed Type gabapentin 300 mg capsule See Rx Instructions .Route .COMPLEX 10/13/18 05/06/24 History loratadine 10 mg tablet (Claritin) 10 mg PO QPM 10/13/18 05/06/24 History montelukast 10 mg tablet 10 mg PO PM 10/13/18 05/06/24 History (Singulair) metoprolol succinate 50 mg See Rx Instructions .Route .COMPLEX 06/21/21 05/06/24 History tablet,extended release 24 hr omeprazole 20 mg capsule,delayed 20 mg PO DAILYBB 06/21/21 05/06/24 History release sennosides 8.6 mg tablet (Senokot) 17.2 mg PO BID PRN Constipation 06/21/21 05/06/24 History sumatriptan succinate 50 mg tablet 50 mg PO DAILY PRN Migraine 06/21/21 05/06/24 History Headache empagliflozin 10 mg tablet 10 mg PO QAM 09/13/22 05/06/24 History (Jardiance) ezetimibe 10 mg tablet 10 mg PO QAM 09/13/22 05/06/24 History multivitamin with minerals 1 tab PO QAM 09/13/22 05/06/24 History rosuvastatin 40 mg tablet 40 mg PO QAM 09/13/22 05/06/24 History sacubitril 97 mg-valsartan 103 mg 1 tab PO BID 09/13/22 05/06/24 History tablet (Entresto) spironolactone 25 mg tablet 12.5 mg PO QAM 09/13/22 05/06/24 History aspirin 81 mg capsule 81 mg PO QAM 09/24/22 05/06/24 History duloxetine 20 mg capsule,delayed 20 mg PO DAILY 05/06/24 05/06/24 History release Patient History Medical History Heart failure EF 45-49% on 09/2021 echo, mild dilated nonischemic cardiomyopathy CAD (coronary artery disease) 30% stenosis of OM1 History of anemia Degenerative disc disease GERD (gastroesophageal reflux disease) Migraine Asthma inhaler prn Surgical History H/O hemorrhoidectomy (09/26/22) Anorectal Exam under Anesthesia, Hemorrhoidectomy(Not Applicable) - Ricardo Biggs DO History of cardiac cath 06/21/[address] [facility] no stents placed History of hysterectomy History of arthroscopy LEFT KNEE Fusion of spine x2--last Cervical Disectomy/fusion 11/02/18 C6-C7, C7-T1 @ [facility]--per pt some limitation moving neck backwards. Grade 1 view, glidescope 3, ETT 7. History of colonoscopy History of tooth extraction History of tonsillectomy History of adenoidectomy History of endoscopic sinus surgery Family History Father Diabetes Family history of diabetes mellitus Aunt Cancer Mother Hypertension Other No family history of adverse response to anesthesia Social History Smoking Status: Never smoker Second Hand Exposure: No; Do You Dip or Chew Tobacco: No; Hx Alcohol Use: No Hx Substance Use: No Preferred Language: Divehi Communication Ability: Effective Visual Impairment: No Limitations Forensic Materials Engineer Required: No Beliefs That Will Affect Care: None marital status: Current Living Situation: Spouse current occupational status: disabled How many Children do You have: 2 Other Information That Helps Us Care for You: No Feels Safe at Home: Yes Safety Concerns: Feels Safe At This Time during the past year weight has: remained stable Assistive Devices: None Review of Systems Review of Systems: All systems reviewed & are unremarkable except as noted in Subjective Physical Exam Constitutional: well nourished; no acute distress Respiratory: no respiratory distress, no labored breathing and no retractions Auscultation: no crackles, no rales, no rhonchi and no wheezes Cardiovascular: Rate/Rhythm: regular rate and regular rhythm Heart Sounds: normal S1 and normal S2; no murmur Vessels: no JVD and no carotid bruit Extremities: no edema Gastrointestinal (Abdomen): Inspection/Auscultation: abdomen normal to inspection and normal bowel sounds; abdomen not distended Percussion/Palpation: abdomen soft; abdomen nontender, no guarding and abdomen not rigid Neurologic: CN's II-XI intact bilaterally and moves all extremities Results & Data Vital Signs (Past 12 Hours) Vital Signs Temp Pulse Pulse Resp BP BP Pulse Ox 05/07/24 08:00 66 05/07/24 07:13 36.5 C 52 L 18 108/65 98 05/07/24 05:44 49 L 05/07/24 04:28 36.3 C L 56 L 20 101/61 98 05/07/24 00:15 36.6 C 64 20 102/62 99 05/06/24 22:44 68 05/06/24 22:10 01/09/25 21:13 36.5 C 54 L 18 124/76 96 05/06/24 21:12 69 05/06/24 21:00 05/06/24 21:00 36.5 C 54 L 18 124/76 96 Pulse Ox O2 Del Method O2 Del Method 05/07/24 08:00 05/07/24 07:13 Room Air 05/07/24 05:44 05/07/24 04:28 Room Air 05/07/24 00:15 Room Air 05/06/24 22:44 05/06/24 22:10 Room Air 05/06/24 21:13 Room Air 05/06/24 21:12 05/06/24 21:00 96 Room Air 05/06/24 21:00 Room Air Diagnostic Findings CTA chest report 05/06/2024: 1. No thoracic aortic dissection is identified. No thoracic aortic aneurysm or intimal wall abnormality identified. 2. No pulmonary embolism. 3. No significant osseous abnormality. 4. No focal airspace consolidation with minimal dependent atelectatic changes noted posteriorly. Cardiac cath report summary 06/21/2021: 30% mid OM1 stenosis Otherwise normal coronary arteries. Mildly elevated left ventricular end-diastolic pressure. Elevated systemic blood pressure. 2D echo report [facility] 10/08/2021: The qualitative LV ejection fraction is 45-49% (mildly reduced). The left ventricular cavity size is mildly enlarged. The LV wall thickness is mildly increased (concentric). The septal motion is abnormal consistent with intrventricular conduction delay. The remaining left ventricular wall segments are borderline hypokinetic. The left ventricular diastolic function is mildly abnormal (grade I). Mild tricuspid regurgitation is present. There is no evidence of pulmonary hypertension. The proximal ascending thoracic aorta is borderline enlarged. Compared to last available study, there has been no interval change. ECG Additional Comments: ECG: Sinus bradycardia, poor R wave progression. Unchanged compared to ECG from 09/24/2022.
--- NOTE | 2024-05-07 14:45 | Discharge Summary ---
Discharge Summary Date of Service May 07, 2024 Principal Dx & Hospital Course #1 = Principal Diagnosis (1) Chest pain: (2) Nonischemic cardiomyopathy: (3) Non-occlusive coronary artery disease: (4) Degenerative disc disease: (5) GERD (gastroesophageal reflux disease): (6) Chronic systolic CHF (congestive heart failure): Notes For Next Care Provider Medication Changes From Visit Increase omeprazole to 40 mg daily Admission HPI Per Admitting Provider Patient is 59-year-old female with PMH HTN, HLD, nonobstructive CAD, dilated nonischemic cardiomyopathy, incomplete LBBB, genetic risk for QT prolongation, history of palpitations secondary to PVCs, SVT, chronic back pain prestented to ER with c/o CP x 1 day. Patient came to the hospital with chest pain and admitted for further workup, cardiac enzymes remain negative, EKG did not show any finding other than sinus bradycardia, patient was seen by cardiology, taken for stress echocardiogram which was otherwise unremarkable with no inducible ischemia, echocardiogram showed ejection fraction of 45 to 50% which is unchanged from previous study, patient was attending and explained all these findings, I am going to increase her omeprazole to 40 mg daily and will see how this works as outpatient. Patient will be discharged home. Updated Medication List Medication Instructions Recorded Confirmed Type gabapentin 300 mg capsule See Rx Instructions .Route .COMPLEX 10/13/18 05/06/24 History loratadine 10 mg tablet (Claritin) 10 mg PO QPM 10/13/18 05/06/24 History montelukast 10 mg tablet 10 mg PO PM 10/13/18 05/06/24 History (Singulair) metoprolol succinate 50 mg See Rx Instructions .Route .COMPLEX 06/21/21 05/06/24 History tablet,extended release 24 hr sennosides 8.6 mg tablet (Senokot) 17.2 mg PO BID PRN Constipation 06/21/21 05/06/24 History sumatriptan succinate 50 mg tablet 50 mg PO DAILY PRN Migraine 06/21/21 05/06/24 History Headache empagliflozin 10 mg tablet 10 mg PO QAM 09/13/22 05/06/24 History (Jardiance) ezetimibe 10 mg tablet 10 mg PO QAM 09/13/22 05/06/24 History multivitamin with minerals 1 tab PO QAM 09/13/22 05/06/24 History rosuvastatin 40 mg tablet 40 mg PO QAM 09/13/22 05/06/24 History sacubitril 97 mg-valsartan 103 mg 1 tab PO BID 09/13/22 05/06/24 History tablet (Entresto) spironolactone 25 mg tablet 12.5 mg PO QAM 09/13/22 05/06/24 History aspirin 81 mg capsule 81 mg PO QAM 09/24/22 05/06/24 History duloxetine 20 mg capsule,delayed 20 mg PO DAILY 05/06/24 05/06/24 History release omeprazole 40 mg capsule,delayed 40 mg PO DAILY #30 caps 05/07/24 Rx release Hospital Stay Data Consultations 05/06/24 17:19 ED Decision to Admit Stat 05/06/24 21:00 Consult Cardiology Routine Diagnostic Imagining Performed 05/06/24 18:01 CTA chest dissec wo/w con [CT angio chest dissec wo/w con] Stat Pending Results Patient Have Any Pending Studies at Discharge: No Discharge Instructions Given to Patient (Per Discharging Provider) No further recommendation Total Time Total Time Spent Total Time Spent (In Minutes): More than 35 minutes
[2024-05-07 15:57] VITALS: BP 124/76
--- NOTE | 2024-05-07 17:17 | Electrocardiogram Report ---
Test Reason : Blood Pressure : */* mmHG Vent. Rate : 69 BPM Atrial Rate : 69 BPM P-R Int : 176 ms QRS Dur : 116 ms QT Int : 410 ms P-R-T Axes : 63 22 56 degrees QTcB Int : 439 ms Normal sinus rhythm Minimal voltage criteria for LVH, may be normal variant ( Enrique product ) Septal infarct (cited on or before 27-Oct-2018) Abnormal ECG When compared with ECG of 24-Sep-2022 12:04, No significant change Confirmed by Werner Jones ([id number]) on 05/07/2024 5:17:18 PM Referred By: Confirmed By: Werner Jones
--- NOTE | 2024-05-07 17:32 | Electrocardiogram Report ---
Test Reason : Blood Pressure : */* mmHG Vent. Rate : 50 BPM Atrial Rate : 50 BPM P-R Int : 198 ms QRS Dur : 114 ms QT Int : 472 ms P-R-T Axes : 56 32 24 degrees QTcB Int : 430 ms Sinus bradycardia Cannot rule out Anterior infarct (cited on or before 27-Oct-2018) Abnormal ECG When compared with ECG of 06-May-2024 16:14, (unconfirmed) Questionable change in initial forces of Anteroseptal leads Confirmed by Werner Jones ([id number]) on 05/07/2024 5:31:56 PM Referred By: REFERRED SELF Confirmed By: Werner Jones
== END 2024-05-07 16:44 | disposition home or self-care (01) | DRG 313 ==
LOC: ED 16:04 → SUATTDRO 18:09 → EDINP 18:09 → 2N 20:55